=== PATIENT | female | born 1940 | race Caucasian/White ===

== ENCOUNTER → 2020-12-09 09:49 | Outpatient (CLI) | payer MEDICARE, SELFPAY ==
--- NOTE | ~2020-12-09 | CT_ITS ---
EXAMINATION: CT abdomen pelvis wo/w con DATE: 12/09/2020 10:55 INDICATION: Chronic constipation, abdominal distention TECHNIQUE: Computed tomography (CT) of the abdomen and pelvis was performed prior to and following e administration of 100 mL Omnipaque 350 intravenous contrast. The dose-length product (DLP) was 1400 .76 mGy-cm. Automated exposure control and iterative reconstruction technique were employed. COMPARISON: None FINDINGS: Minimal dependent atelectasis is present in the lung bases. The heart size is normal. The l iver, spleen, pancreas, and adrenal glands are normal. Stones are present in the nondistended gallbla dder. There are peripelvic cysts of the kidneys. No stones are identified in the kidneys, ureters, or bladder. There is no hydronephrosis or hydroureter. There is calcified atherosclerosis of the aorta and many of the other arteries. No pathologically enlarged abdominal or pelvic lymph nodes are identi fied. There is no free intraperitoneal gas or evidence of bowel obstruction. A large volume of coloni c stool is present, particularly at the hepatic flexure of the colon. There is moderate lumbar spond ylosis. IMPRESSION: 1. Constipation. Reviewed, dictated and finalized at location A. IMPRESSION: 1. Constipation.
== END ==
PROVIDERS: PCP Family Medicine; Visit Provider Physician Assistant
DX: R14.0 Abdominal distension (gaseous) (principal); K59.09 Other constipation
CPT/HCPCS: 74178; Q9967

== ENCOUNTER 2020-12-15 09:58 | Outpatient (CLI) | payer MEDICARE, SELFPAY ==
--- NOTE | ~2020-12-15 | MM_ITS ---
EXAMINATION: MM screening [facility] BI w jared HISTORY: Screening mammogram TECHNIQUE: Craniocaudal and mediolateral oblique 3-D tomosynthesis images were obtained and synthetic 2-D images were generated. CAD analysis was submitted and interpreted. COMPARISON: 09/13/2016, 09/08/2016, 05/24/2015 BREAST PARENCHYMAL COMPOSITION: The breasts are heterogeneously dense, which may obscure small masses . FINDINGS: RIGHT BREAST: An asymmetry is present in the far posterior third of the inner breast on the craniocau riki view. LEFT BREAST: There is no evidence of suspicious mass, calcification, or architectural distortion to s uggest malignancy. There has been no significant interval change. IMPRESSION: 1. Right breast asymmetry on the craniocaudal view. 2. Additional mammographic views and possible breast ultrasound are recommended. BI-RADS Category 0: Incomplete: Needs additional imaging evaluation. Reviewed, dictated and finalized at location A. IMPRESSION: 1. Right breast asymmetry on the craniocaudal view. 2. Additional mammographic views and possible breast ultrasound are recommended . BI-RADS Category 0: Incomplete: Needs additional imaging evaluation.
== END 2020-12-15 09:59 | disposition home or self-care (01) ==
LOC: ANHIMG 10:00
PROVIDERS: PCP Family Medicine; Visit Provider Physician Assistant
DX: Z12.31 Encounter for screening mammogram for malignant neoplasm of breast (principal); R92.8 Other abnormal and inconclusive findings on diagnostic imaging of breast
CPT/HCPCS: 77063; 77067

== ENCOUNTER 2021-01-13 12:18 | Outpatient (CLI) | payer MEDICARE, SELFPAY ==
--- NOTE | ~2021-01-13 | MMUS_ITS ---
EXAMINATION: MM diagnostic mammo unilat RT, US breast RT limited HISTORY: Right breast asymmetry reported in far posterior medial right breast on screening craniocaud al view of 12/15/2020 TECHNIQUE: Additional 3-D tomosynthesis images of the right breast were performed and synthetic 2-D i mages were generated. Rotated medial craniocaudal view of right breast. CAD analysis was submitted an d interpreted. High resolution upper inner and lower inner right breast ultrasound was performed. COMPARISON: 12/15/2020, , 05/24/2015 bilateral digital screening mammogram examinations FINDINGS: MAMMOGRAPHIC FINDINGS: No suspicious mass or architectural distortion is evident. ULTRASOUND: No suspicious mass or shadowing is detected in the upper inner or lower inner quadrant of the right b reast. IMPRESSION: 1. No mammographic evidence of malignancy 2. Routine mammographic screening is recommended. BI-RADS Category 1: Negative Reviewed, dictated and finalized at location A. IMPRESSION: 1. No mammographic evidence of malignancy 2. Routine mammographic screening is recommended. BI-RADS Category 1: Negative
== END 2021-01-13 12:19 | disposition home or self-care (01) ==
LOC: ANHIMG 12:20
PROVIDERS: PCP Family Medicine; Visit Provider Physician Assistant
DX: R92.8 Other abnormal and inconclusive findings on diagnostic imaging of breast (principal)
CPT/HCPCS: 76642; 77065

== ENCOUNTER 2022-05-08 14:24 | Outpatient (CLI) | payer MEDICARE, SELFPAY ==
--- NOTE | ~2022-05-08 | MM_ITS ---
EXAMINATION: MM screening [facility] BI w jared HISTORY: Screening mammogram TECHNIQUE: Craniocaudal and mediolateral oblique 3-D tomosynthesis images were obtained and synthetic 2-D images were generated. CAD analysis was submitted and interpreted. COMPARISON: 01/13/2021, 12/15/2020, 09/13/2016 BREAST PARENCHYMAL COMPOSITION: There are scattered areas of fibroglandular density. FINDINGS: There is no suspicious mass, calcification, or architectural distortion to suggest malignan cy in either breast. There has been no suspicious interval change. IMPRESSION: 1. No mammographic evidence of malignancy. 2. Recommend routine screening mammography in one year. BI-RADS Category 1: Negative Reviewed, dictated and finalized at location A.
--- NOTE | ~2022-05-08 | DEXA_ITS ---
Bone Density Report Name: OCTAVIA MARTINES Age: 82 Sex: Female Ethnicity: White Date of : 1940 Indication: osteopenia; monitoring treatment; parental hip fracture; height loss; prior fracture; postmenopausal Referring Provider: PORSCHE THOMPSON Study: Bone densitometry was performed. Exam Date: May 08, 2022 Accession number: [id number] Bone Density: Region BMD T-score Z-score Classification AP Spine(L1-L4) 1.000 -0.4 2.3 Normal Femoral Neck (Left) 0.613 -2.1 0.3 Osteopenia Total Hip (Left) 0.749 -1.6 0.6 Osteopenia Femoral Neck (Right) 0.648 -1.8 0.6 Osteopenia Total Hip (Right) 0.783 -1.3 0.9 Osteopenia Total Hip Mean 0.766 -1.5 0.8 Osteopenia World Health Organization criteria for BMD impression classify patients as: Normal (T-score at or above -1.0), Osteopenia (T-score between -1.0 and -2.5), or Osteoporosis (T-score at or below -2.5). 10-year Fracture Risk: FRAX not reported because: Treated for osteoporosis Previous Exams: Region Exam Age BMD T-score BMD Change BMD Change Date g/cm2 vs Baseline vs Previous AP Spine (L1-L4) 05/08/2022 82 1.000 -0.4 0.064 (6.8%)# 0.070 (7.5%)* 05/24/2015 75 0.931 -1.1 -0.005 (-0.6%) -0.005 (-0.6%) 04/21/2013 73 0.936 -1.0 Total Hip(Left) 05/08/2022 82 0.749 -1.6 0.030 (4.1%)# -0.014 (-1.8%) 05/24/2015 75 0.763 -1.5 0.044 (6.1%)# 0.044 (6.1%)# 04/21/2013 73 0.719 -1.8 Total Hip(Right) 05/08/2022 82 0.783 -1.3 0.044 (6.0%)# 0.042 (5.7%)* 05/24/2015 75 0.740 -1.7 0.002 (0.3%)# 0.002 (0.3%)# 04/21/2013 73 0.738 -1.7 *Denotes significance at 95% confidence level, LSC for AP Spine = 0.022 g/cm2, LSC for Total Hip = 0.027 g/cm2 # Denotes dissimilar scan types or analysis methods Clinical Information Provided by Patient: Has had a low trauma fracture Parent has had a hip fracture Is being treated for osteoporosis Has used the following medications: Fosamax (i.e. alendronate), Vitamin D, Calcium Patient maximum height was 64 Menopause Age: 45 No regular weight bearing exercise Onset of menses at age 13 Number of children 5 Impression: The patient has low bone mass, based on the Left Femoral Neck T-score. The patient has risk factors, including: parental hip fracture, previous fracture. No significant bone loss was observed. Discussion: PATIENT UNDER TREATMENT WITH NO SIGNIFICANT BMD LOSS SINCE LAST EXAM. In an untreated patient
== END 2022-05-08 14:25 | disposition home or self-care (01) ==
LOC: ANHIMG 14:25
PROVIDERS: PCP Family Medicine; Visit Provider Physician Assistant
DX: Z12.31 Encounter for screening mammogram for malignant neoplasm of breast (principal); Z78.0 Asymptomatic menopausal state; M85.852 Other specified disorders of bone density and structure, left thigh; M85.851 Other specified disorders of bone density and structure, right thigh
CPT/HCPCS: 77063; 77067; 77080

== ENCOUNTER 2023-05-30 15:13 | Outpatient (CLI) | payer MEDICARE, SELFPAY ==
[2023-05-30 20:36] LABS: Alanine Aminotransferase 31 U/L (6-35); Albumin Level 4.3 g/dL (3.5-5.1); Alkaline Phosphatase 106 U/L (38-126); Anion Gap 8 mmol/L (8-16); Aspartate Amino Transferase 36 U/L (14-36); Bilirubin,Total 0.5 mg/dL (0.2-1.3); Blood Urea Nitrogen 36 mg/dL (7-17); Calcium 9.6 mg/dL (8.4-10.2); Carbon Dioxide 28 mmol/L (22-30); Chloride 99 mmol/L (98-107); Estimated Glomerular Filt Rate 43; Glucose 109 mg/dL (65-110); Potassium 4.5 mmol/L (3.4-5.0); Sodium 135 mmol/L (137-145)
[2023-05-30 21:42] LABS: Hemoglobin A1C 6.5 % (<5.7)
== END 2023-05-30 15:14 | disposition home or self-care (01) ==
LOC: ANHGOSHLAB 15:15
PROVIDERS: PCP Family Medicine; Visit Provider Family Medicine
DX: E11.9 Type 2 diabetes mellitus without complications (principal); I10 Essential (primary) hypertension
CPT/HCPCS: 36415; 80053; 83036

== ENCOUNTER → 2023-09-04 14:40 | Outpatient (CLI) | payer MEDICARE, SELFPAY ==
--- NOTE | ~2023-09-04 | XR_ITS ---
EXAM: XR hip BI 2V w AP pelvis DATE: 09/04/2023 15:13 HISTORY: M25.559 - Pain in unspecified hip . COMPARISON: CT abdomen pelvis 12/09/2020. FINDINGS: Decreased mineralization. No fracture or dislocation. No lytic or blastic lesion. Severe l umbar degenerative disc disease. Moderate right and mild left hip degenerative change. Moderate ostei tis pubis. Amorphous calcification superior to the right greater trochanter. Spaces are maintained. N o erosion or periosteal change. Soft tissues within normal limits. IMPRESSION: Moderate right and mild left hip osteoarthritis. Calcific tendinitis at the right greater trochanter. Moderate osteitis pubis. Severe lower lumbar degenerative disc disease. Reviewed, dictated and finalized at location K. RISK ANALYST IMPRESSION: Moderate right and mild left hip osteoarthritis. Calcific tendiniti s at the right greater trochanter. Moderate osteitis pubis. Severe lower lumbar degenerative disc disease.
== END ==
PROVIDERS: PCP Family Medicine; Visit Provider Nurse Practitioner Family
DX: M16.0 Bilateral primary osteoarthritis of hip (principal); M65.251 Calcific tendinitis, right thigh; M86.8X5 Other osteomyelitis, thigh; M51.36 Other intervertebral disc degeneration, lumbar region
CPT/HCPCS: 73521

== ENCOUNTER 2023-09-06 09:54 | Emergency (ER) | payer MEDICARE, SELFPAY ==
--- NOTE | ~2023-09-06 | XR_ITS ---
XR chest 1V DATE: 09/06/2023 11:26 INDICATION: Chest pain, generalized weakness TECHNIQUE: AP chest COMPARISON: November 14, 2005 2 view chest FINDINGS: Cardiomegaly. Prominent aortic arch calcification. No hilar or mediastinal enlargement is e vident. Bilateral apical capping. No pulmonary infiltrate or consolidation, pleural effusion or pulmonary vascular congestion or pneumo thorax is evident. Osteopenia. IMPRESSION: Cardiomegaly, aortic atherosclerosis No active pulmonary disease Reviewed, dictated and finalized at location L. ODY OFFICER
--- NOTE | ~2023-09-06 | XR_ITS ---
EXAMINATION: XR shoulder RT min 2V DATE: 09/06/2023 11:26 INDICATION: Right shoulder pain. TECHNIQUE: 4 views of right shoulder were obtained. COMPARISON: None. FINDINGS: Bone alignment is normal. No fracture. There is mild osteoarthritis of glenohumeral joint a nd severe osteoarthritis of the acromioclavicular joint. There is mild scarring at right lung apex. IMPRESSION: 1. Polyarticular osteoarthritis. Reviewed, dictated and finalized at location A. P CLERK
--- NOTE | ~2023-09-06 | XR_ITS ---
EXAMINATION: XR shoulder LT min 2V DATE: 09/06/2023 11:26 INDICATION: Left shoulder pain. TECHNIQUE: 4 views of left shoulder were obtained. COMPARISON: None. FINDINGS: Bone alignment is normal. No fracture. There is mild osteoarthritis of glenohumeral joint a nd acromioclavicular joint. IMPRESSION: 1. Mild polyarticular osteoarthritis. Reviewed, dictated and finalized at location A. TENDER
[2023-09-06 10:07] VITALS: BP 150/69; PULSE 93; RESP 18; TEMP 36.8; O2SAT 100
--- NOTE | 2023-09-06 10:51 | ECG_ITS ---
Measurements Intervals [place] Rate: 98 P: 64 LA: 188 QRS: 5 QRSD: 126 T: 65 QT: 362 QTc: 464 Interpretive Statements SINUS RHYTHM LEFT BUNDLE BRANCH BLOCK [120+ ms QRS DURATION, 80+ ms Q/S IN V1/V2, 85+ ms R IN I/aVL/V5/V6] NO PREVIOUS ECG AVAILABLE FOR COMPARISON Electronically Signed On 09-06-2023 14:05:55 GUEST SERVICE AIDE by Chetna Wyatt M.D.
--- NOTE | 2023-09-06 10:59 | ED.EXTPRO ---
HPI - Extremity Problem General Chief complaint: Extremity Problem,Nontraumatic <Freda Mccoy PA-C - Last Filed: 09/06/23 14:57> Stated complaint: PAIN ALL OVER SINCE [place] <Freda Mccoy PA-C - Last Filed: 09/06/23 14:57> Time Seen by Provider: 09/06/23 10:12 <Freda Mccoy PA-C - Last Filed: 09/06/23 14:57> History of Present Illness HPI Narrative: 83-year-old female with a history of osteopenia, hypertension, hyperlipidemia reports for evaluation for bilateral shoulder pain, neck pain and bilateral hip pain since July 30, 2023. Patient states she is ?pain all over? that suddenly started around [place] and has been persistent since. She states her pain is significantly worse in the mornings and tends to improve with movement. She reports associated muscle weakness and new onset lower extremity edema. Denies prior history of CHF. States the pain in her shoulders, neck and hips are worse with movement, specifically when she was going up stairs or going from a sitting to standing position. She denies fevers, chest pain or shortness of breath, cough or congestion, rash. The patient was seen by her PCPs office 2 days ago. She had x-rays of her hips and pelvis done at that time which showed ?Moderate right and mild left hip osteoarthritis. Calcific tendinitis at the right greater trochanter. Moderate osteitis pubis. Severe lower lumbar degenerative disc disease. Per the PCP note, the patient was referred to physical therapy and was advised compression stockings for swelling. Denies vision changes, headaches, temporal pain, fever. <Freda Mccoy PA-C - Last Filed: 09/06/23 14:57> Related Data Home medications: Home Medications Medication Instructions Recorded Confirmed ascorbate calcium (vitamin C) 500 500 mg PO DAILY 11/29/22 05/30/23 mg tablet calcium carbonate 500 mg calcium 500 mg PO BID 11/29/22 05/30/23 (1,250 mg) chewable tablet (Calcium 500) cholecalciferol (vitamin D3) 50 50 mcg PO DAILY 11/29/22 05/30/23 mcg (2,000 unit) capsule multivitamin 1 tablet PO DAILY 11/29/22 05/30/23 omega-3 fatty acids 1,000 mg 1,000 mg PO DAILY 11/29/22 05/30/23 capsule <Freda Mccoy PA-C - Last Filed: 09/06/23 14:57> Allergies/Adverse reactions: Allergies Allergy/AdvReac Type Severity Reaction Status Date / Time doxycycline Allergy Unknown Skin Verified 09/04/23 14:13 Reaction Penicillins Allergy Unknown Skin Verified 09/04/23 14:13 Reaction Wasp Allergy Mild Unknown Uncoded 09/04/23 14:13 <Freda Mccoy PA-C - Last Filed: 09/06/23 14:57> Review of Systems Review of Systems: CONSTITUTIONAL: Denies fever, chills, or sweats. EYES: Denies visual changes, redness, or discharge. ENT: Denies rhinorrhea, congestion, sore throat, or otalgia. CARDIOVASCULAR: See HPI RESPIRATORY: Denies cough or dyspnea. GASTROINTESTINAL: Denies abdominal pain, nausea, vomiting, or diarrhea. GENITOURINARY: Denies dysuria or hematuria. SKIN: Denies rash or itching. MUSCULOSKELETAL: See HPI NEUROLOGIC: Denies headache, numbness, or weakness. PSYCHIATRIC: Denies anxiety or depression. <Freda Mccoy PA-C - Last Filed: 09/06/23 14:57> [facility] Past Medical History Medical History: Medical History CKD (chronic kidney disease) stage 3, GFR 30-59 ml/min Essential (primary) hypertension Osteopenia Prediabetes Pure hypercholesterolemia, unspecified <Freda Mccoy PA-C - Last Filed: 09/06/23 14:57> Surgical History Surgical History: Surgical History History of appendectomy (~1944) <Freda Mccoy PA-C - Last Filed: 09/06/23 14:57> Family History Family History: Family History Mother Hypertension Family history of rheumatoid arthritis Father Dece
[2023-09-06 11:06] VITALS: BP 145/73; PULSE 96; RESP 18; O2SAT 98
[2023-09-06] MEDS: MORPHINE SULFATE (*CRX) 2 MG/ML INJ IV PUSH (11:09)
[2023-09-06 11:10] LABS: Basophils Absolute Auto 0.1 K/mm3 (0.0-0.1); Basophils Percent Auto 0.5 % (0.2-1.2); Eosinophils Absolute Auto 0.2 K/mm3 (0-0.3); Eosinophils Percent Auto 1.6 % (0-4.4); Hematocrit 39.9 % (37.0-47.0); Hemoglobin 12.6 g/dL (12.0-15.0); Immature Granulocyte Absolute 0.04 K/mm3 (0.00-0.031); Immature Granulocyte Percent A 0.4 % (0-0.5); Lymphocytes Absolute Auto 1.81 K/mm3 (0.9-3.2); Mean Corpuscular HGB Conc 31.6 g/dl (32-36); Mean Corpuscular Hemoglobin 28.3 pg (26-34); Mean Corpuscular Volume 89.5 fl (80-100); Mean Platelet Volume 9.5 fl (7.4-10.4); Monocytes Percent Auto 10.2 % (2.6-8.5); Neutrophils Absolute Auto 6.5 K/mm3 (1.3-6.7); Neutrophils Percent Auto 68.3 % (45.5-73.1); Platelet Count Result 271 k/mm3 (150-375); Red Blood Count 4.46 M/mm3 (4.2-5.4); Red Cell Distribution Width 13.2 % (11.5-14.5); White Blood Count 9.6 K/mm3 (4.5-10.0)
[2023-09-06 11:23] LABS: Alanine Aminotransferase 23 U/L (6-35); Albumin Level 3.6 g/dL (3.5-5.1); Alkaline Phosphatase 121 U/L (38-126); Anion Gap 9 mmol/L (8-16); Aspartate Amino Transferase 23 U/L (14-36); Bilirubin,Total 0.4 mg/dL (0.2-1.3); Blood Urea Nitrogen 33 mg/dL (7-17); CRP 3.7 mg/dL (<1.0); Calcium 9.4 mg/dL (8.4-10.2); Carbon Dioxide 27 mmol/L (22-30); Chloride 104 mmol/L (98-107); Creatine Kinase 24 U/L (30-135); Estimated CRCL calculation 32 ml/min; Estimated Glomerular Filt Rate 47; Glucose 208 mg/dL (65-110); Potassium 4.3 mmol/L (3.4-5.0); Sodium 140 mmol/L (137-145)
[2023-09-06 11:29] LABS: NT Pro B Type Natriuretic Pept 360 pg/mL (19.9-100)
[2023-09-06 11:46] LABS: Erythrocyte Sedimentation Rate 69 mm/hr (0-20)
[2023-09-06 12:17] VITALS: BP 127/61; PULSE 90; RESP 17; O2SAT 97
[2023-09-06 12:24] LABS: Thyroid Stimulating Hormone Reflex 0.518 uIU/mL (0.465-4.68)
[2023-09-06 13:28] VITALS: BP 125/57; PULSE 91; RESP 18; O2SAT 96
[2023-09-06 13:45] LABS: Appearance Urine Cloudy (Clear); Bacteria Urine None Seen /hpf; Bilirubin Urine Negative (Negative); Blood Urine Negative (Negative); Color Urine Yellow (Yellow); Glucose Urine UA 3+ mg/dL (Negative); Ketones Urine Negative (Negative); Leukocyte Esterase Ur Negative LEU/UL (Negative); Nitrate Urine Negative (Negative); Non Pathogenic Casts 0-2; Protein Urine Negative (Negative); RBC Urine 0-2 /hpf (0-2); Specific Grav Ur 1.022 (1.001-1.035); Squamous Epithelial Cell Urine None seen /hpf (Few); Urobilinogen Urine 0.2 mg/dL (<2.0); pH Urine 7.5 (5.0-9.0)
[2023-09-06 13:48] LABS: Add Urine Microscopic? YES
[2023-09-06] MEDS: predniSONE 20 MG TABLET PO (14:58)
[2023-09-06 15:14] VITALS: BP 126/81; PULSE 88; RESP 18; O2SAT 100
== END 2023-09-06 15:15 | disposition home or self-care (01) ==
PROVIDERS: Emergency Provider Physician Assistant; PCP Family Medicine
DX: M35.3 Polymyalgia rheumatica (principal); R60.0 Localized edema; I12.9 Hypertensive chronic kidney disease with stage 1 through stage 4 chronic kidney disease, or unspecified chronic kidney disease; N18.30 Chronic kidney disease, stage 3 unspecified; E78.00 Pure hypercholesterolemia, unspecified; R73.03 Prediabetes; M85.80 Other specified disorders of bone density and structure, unspecified site; M19.012 Primary osteoarthritis, left shoulder; M19.011 Primary osteoarthritis, right shoulder; I44.7 Left bundle-branch block, unspecified
CPT/HCPCS: 36415; 71045; 73030; 80053; 81001; 82550; 83880; 84443; 85025; 85652; 86140; 87086; 93005; 96374; 99284; J2270; J7512

== ENCOUNTER 2023-09-10 15:26 | Outpatient (RCR) | payer MEDICARE, SELFPAY ==
--- NOTE | 2023-09-10 16:20 | OPREHPOC ---
Outpatient Therapy Plan of Care This is a Multidisciplinary Plan of Care that may contain components documented by all disciplines (PT, OT, and ST.) PT Problem 1 PT Problem #1 Knowledge Deficit PT Goal 1 Goal 1. Patient will perform independent HEP Target Visit 8 PT Problem 2 PT Problem #2 Pain PT Goal 1 Goal 1. Pain with ADL's no higher than 1/10 Target Visit 8 PT Problem 3 PT Problem #3 Impaired Strength PT Goal 1 Goal 1. Bilateral hip abduction and extension to 4+/5 to reduce pain with transfers Target Visit 8 PT Problem 4 PT Problem #4 Impaired Functional ADLs PT Goal 1 Goal 1. Patient will descend stairs reciprocally without turning body to side Target Visit 8
--- NOTE | 2023-09-10 16:20 | PTOPEVAL1 ---
Assessment and note entered by Sarah Rose DPT Evaluation Information Assessment Status Evaluation Subjective Information Pt reports she bilateral anterior hip pain that started in her right side. Denies n/t in her legs. Progressively worsened over the last few weeks. Was given steroids which has helped some. Highest pain 6/10 and lowest 0/10. Pain seems to be increased with getting in/out of bed, car transfers navigating stairs, has required some assistance for dressing. When pain is at the worst she was not doing her normal cooking or cleaning. Pt lives with spouse and family. Two stairs to enter the house and stairs to the basement. Pt does drive. Returns to MD 09/17/23. Patient goal: improve strength. Reported Pain Level Pain Score 1: Self Report Assessment PT Clinical Summary The patient is presenting to skilled therapy with bilateral hip pain. She presents with significantly decreased LE strength and impairments navigating stairs which are contributing to her pain and difficulty with tasks including car and bed transfers. She will highly benefit from therapy to address these impairments in order to return to prior level of function. Plan of Care Interventions Electrical Stimulation,Gait Training,Hot Pack/Cold Pack,Manual Therapy,Neuro Re-education,Patient/ Caregiver Education,Therapeutic Activities, Therapeutic Exercise PT Services Indicated Yes Treatment Frequency and 2 times a week for 8 visits Duration These treatments will address the objective and functional deficits as defined above. The patient will be advanced safely and appropriately in order for the patient to progress towards his/her prior level of function. Additional exercises will be introduced and as well as a comprehensive home exercise program upon discharge, if needed, ?to ensure carryover of functional gains achieved in the clinic. This treatment plan has been reviewed and agreement upon by the patient.
--- NOTE | 2023-09-24 16:33 | PCPTNOTE ---
Patient called to cancel, unable to make it today.
--- NOTE | 2023-09-26 10:16 | PCPTNOTE ---
Patient and her daughter have cancelled all appointments for the time being due to a lot going on right now .
--- NOTE | 2023-11-26 15:10 | PTOPDC ---
Assessment and note entered by ASHLEY UmanzorT Evaluation Information Assessment Status Discharge - Pt Not Present Subjective Information - Assessment PT Clinical Summary Patient and her daughter previously canceled all appointments due to a lot going on right now and have not called back to schedule further. Patient to be discharged this date. Plan of Care PT Services Indicated No
== END 2023-11-27 08:18 | disposition home or self-care (01) ==
LOC: ANHGOSHPT 15:26
PROVIDERS: PCP Family Medicine; Visit Provider Nurse Practitioner Family
DX: M25.551 Pain in right hip (principal); M25.552 Pain in left hip
CPT/HCPCS: 97110; 97140; 97161

== ENCOUNTER 2023-09-21 14:06 | Emergency (ER) | payer MEDICARE, SELFPAY ==
[2023-09-21] VITALS (17 sets, daily range): BP systolic 92–161; BP diastolic 52–92; PULSE 62–96; RESP 10–21; TEMP 36.4; O2SAT 95–98
--- NOTE | ~2023-09-21 | CT_ITS ---
EXAMINATION: CT cervical spine wo con DATE: 09/21/2023 18:36 INDICATION: fall TECHNIQUE: Computed tomography (CT) of the cervical spine was performed without intravenous contrast. Automated exposure control and iterative reconstruction technique were employed. The dose-length pro duct was 186.20 mGy-cm. COMPARISON: None. FINDINGS: Vertebral Body Alignment: Lateral flexion of the cervical spine. Multiple trace listheses in the cerv ical and upper thoracic spine, likely on a degenerative basis. Craniocervical and atlantoaxial alignment: Mild degenerative change. Alignment intact. Osseous structures/fracture: No evidence of a lytic or blastic process in the visualized spine. No e vidence of acute fracture. Cervical soft tissues: The paraspinal soft tissues planes are maintained. Biapical pleural scarring. 16 mm right thyroid nodule. Degenerative changes: Multilevel severe degenerative disc disease and facet arthropathy. Severe right neural foraminal narrowing at C3-4. Moderate central canal narrowing at C3-4. IMPRESSION: No acute fracture or traumatic malalignment in the cervical spine. 16 mm right thyroid nodule, consider outpatient thyroid ultrasound for further characterization. Reviewed, dictated and finalized at location K. PROJECT MANAGER
--- NOTE | ~2023-09-21 | CT_ITS ---
EXAMINATION: CT brain wo con DATE: 09/21/2023 18:34 INDICATION: fall . TECHNIQUE: Computed tomography (CT) of the head was performed intravenous contrast. The mA was adjust ed according to patient size. Iterative reconstruction technique was employed. The dose-length produc t was 605.33 mGy-cm. COMPARISON: None. FINDINGS: No acute intracranial hemorrhage or extra-axial fluid collection. No hydrocephalus, mass, or herniation. No acute ischemic infarct. Unremarkable dural venous sinus attenuation. No acute osseous abnormality. The aerated spaces are clear. Mild atrophy and chronic white matter change. Atherosclerotic intracranial calcification. Old posteri or left basal ganglia lacunar infarct. IMPRESSION: No acute intracranial process. Reviewed, dictated and finalized at location K. N WINDING OPERATOR
--- NOTE | ~2023-09-21 | XR_ITS ---
XR chest 1V DATE: 09/21/2023 18:40 INDICATION: Syncope. Fall. TECHNIQUE: PA view COMPARISON: 09/06/2023 chest FINDINGS: Cardiomegaly. Prominent aortic arch calcification. No hilar or mediastinal enlargement. Mild bilateral apical capping. No pulmonary infiltrate or consolidation, pulmonary vascular congestio n or pleural effusion or pneumothorax. IMPRESSION: No active disease or significant change since 09/06/2023 Reviewed, dictated and finalized at location A. ICAL RESEARCH ADMINISTRATOR
--- NOTE | ~2023-09-21 | XR_ITS ---
EXAMINATION: XR hip RT min 2V DATE: 09/21/2023 17:31 INDICATION: Fall with right hip pain TECHNIQUE: Anteroposterior and frog-leg lateral views of the right hip were obtained. COMPARISON: None. FINDINGS: Bone alignment is normal. No fracture or suspected avascular necrosis. There is mild osteoarthritis a t the right hip and moderate osteoarthritis at the right sacroiliac joint. Osteitis pubis. Chronic he terotopic versus enthesopathic ossification at the tip of the greater trochanter. IMPRESSION: 1. 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 No acute osseous abnormality. Reviewed, dictated and finalized at location A. ORATE STATISTICAL FINANCIAL ANALYST IMPRESSION: 1. 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 No acute osseou s abnormality.
--- NOTE | ~2023-09-21 | XR_ITS ---
EXAM: XR wrist RT min 3V DATE: 09/21/2023 17:31 HISTORY: fall . COMPARISON: None available. FINDINGS: Decreased mineralization. No fracture. Scapholunate widening to 3 mm. No lytic or blastic lesion. Severe degenerative change at the trapeziometacarpal joint and triscaphe joint. No erosion or periosteal change. Soft tissues within normal limits. IMPRESSION: No acute fracture in the right wrist. Scapholunate widening may reflect presence of acute or chronic scapholunate ligament injury. Reviewed, dictated and finalized at location K. CTOR OF MARKETING COMMUNICATIONS IMPRESSION: No acute fracture in the right wrist. Scapholunate widening may ref lect presence of acute or chronic scapholunate ligament injury.
--- NOTE | 2023-09-21 17:56 | ED.SYNCOPE ---
HPI - Syncope General Chief Complaint: Syncope <Freda Mccoy PA-C - Last Filed: 09/21/23 18:06> Stated Complaint: syncope/fall/wrist injury <Freda Mccoy PA-C - Last Filed: 09/21/23 18:06> Time Seen by Provider: 09/21/23 19:23 <Freda Mccoy PA-C - Last Filed: 09/21/23 18:06> Focused HPI: 83 y/o F reports for evaluation after a syncopal episode and fall that occurred around 0700 this morning. P states she had gotten out of the shower and went to get a coat out of the closet, turned around to her daughter and said I feel dizzy , then fell. State she thinks she blacked out for a second, is not sure if she hit her head. States she landed on her R side. Complaining of R hand pain and R hip pain. Denies neck pain, chest pain, shortness of breath, abdominal pain, n/v/d, melena, hematochezia, cough, congestion, fever, urinary complaints, headache. Denies vision changes or focal numbness or weakness. Not on anticoagulation. States she has not felt dizzy since. GENERAL: Well-appearing, well-nourished, and in no acute distress. HEAD: Normocephalic, atraumatic. CHEST: Clear to auscultation. ?No respiratory distress. HEART: Regular rate and rhythm.? MSK: Ecchymosis and tenderness to the R 1st and 2nd metacarpals with tenderness. Mild snuffbox tenderness. Cap refill <2. No tenderness to right hip. NEURO: ?Alert and oriented x3. CN 2-12 intact. Strength 5/5 throughout. Sensation intact. Patient screened in triage and initial orders placed.? ?Additional care and disposition to be based upon?diagnostic testing and treatment. <Freda Mccoy PA-C - Last Filed: 09/21/23 18:06> Related Data Home Medications: Home Medications Medication Instructions Recorded Confirmed ascorbate calcium (vitamin C) 500 500 mg PO DAILY 11/29/22 09/17/23 mg tablet calcium carbonate 500 mg calcium 500 mg PO BID 11/29/22 09/17/23 (1,250 mg) chewable tablet (Calcium 500) cholecalciferol (vitamin D3) 50 50 mcg PO DAILY 11/29/22 09/17/23 mcg (2,000 unit) capsule multivitamin 1 tablet PO DAILY 11/29/22 09/17/23 omega-3 fatty acids 1,000 mg 1,000 mg PO DAILY 11/29/22 09/17/23 capsule <Freda Mccoy PA-C - Last Filed: 09/21/23 18:06> Allergies/Adverse Reactions: Allergies Allergy/AdvReac Type Severity Reaction Status Date / Time doxycycline Allergy Unknown Skin Verified 09/17/23 09:43 Reaction Penicillins Allergy Unknown Skin Verified 09/17/23 09:43 Reaction Wasp Allergy Mild Unknown Uncoded 09/17/23 09:43 <Freda Mccoy PA-C - Last Filed: 09/21/23 18:06> [facility] Past Medical History Medical History: Medical History CKD (chronic kidney disease) stage 3, GFR 30-59 ml/min Essential (primary) hypertension Osteopenia Polymyalgia rheumatica Prediabetes Pure hypercholesterolemia, unspecified Type 2 diabetes mellitus without complications <Freda Mccoy PA-C - Last Filed: 09/21/23 18:06> Surgical History Surgical History: Surgical History History of appendectomy (~1944) <Freda Mccoy PA-C - Last Filed: 09/21/23 18:06> Family History Family History: Family History Mother Hypertension Family history of rheumatoid arthritis Father Malignant neoplasm of prostate Other Family history of elevated blood lipids Family history of multiple sclerosis <Freda Mccoy PA-C - Last Filed: 09/21/23 18:06> Social History Social History: Social History Smoking status: Never smoker Alcohol intake: never Substance use: never Substance use type: does not use Lack of Transportation: No Lack of Food: Never True Current Housing: I Have Housing Concerned About Future Housing: No Difficulty Paying Gas/El
--- NOTE | 2023-09-21 17:57 | ECG_ITS ---
Measurements Intervals [place] Rate: 72 P: 55 [place]: 163 QRS: -7 QRSD: 125 T: 81 QT: 413 QTc: 454 Interpretive Statements SINUS RHYTHM POSSIBLE LEFT ATRIAL ENLARGEMENT [-0.1mV P WAVE IN V1/V2] LEFT BUNDLE BRANCH BLOCK [120+ ms QRS DURATION, 80+ ms Q/S IN V1/V2, 85+ ms R IN I/aVL/V5/V6] ABNORMAL ECG COMPARED TO ECG 09/06/2023 11:02:12 NO SIGNIFICANT CHANGES Electronically Signed On 09-22-2023 8:21:01 [employer] by Melquiades Fernandez M.D.
[2023-09-21 20:03] LABS: Basophils Percent Auto 0.1 % (0.2-1.2); Eosinophils Percent Auto 0.1 % (0-4.4); Hemoglobin 14.4 g/dL (12.0-15.0); Immature Granulocyte Absolute 0.13 K/mm3 (0.00-0.031); Immature Granulocyte Percent A 0.9 % (0-0.5); Lymphocytes Absolute Auto 0.79 K/mm3 (0.9-3.2); Lymphocytes Percent Auto 5.2 % (18.3-44.2); Mean Corpuscular HGB Conc 31.3 g/dl (32-36); Mean Corpuscular Volume 89.3 fl (80-100); Mean Platelet Volume 10.5 fl (7.4-10.4); Monocytes Absolute Auto 0.3 K/mm3 (0.1-0.6); Monocytes Percent Auto 1.8 % (2.6-8.5); Neutrophils Absolute Auto 13.9 K/mm3 (1.3-6.7); Neutrophils Percent Auto 91.9 % (45.5-73.1); Platelet Count Result 222 k/mm3 (150-375); Red Blood Count 5.15 M/mm3 (4.2-5.4); Red Cell Distribution Width 14.5 % (11.5-14.5); White Blood Count 15.1 K/mm3 (4.5-10.0)
[2023-09-21 20:13] LABS: Alanine Aminotransferase 34 U/L (6-35); Albumin Level 4.2 g/dL (3.5-5.1); Alkaline Phosphatase 119 U/L (38-126); Anion Gap 9 mmol/L (8-16); Aspartate Amino Transferase 31 U/L (14-36); Bilirubin,Total 0.5 mg/dL (0.2-1.3); Blood Urea Nitrogen 66 mg/dL (7-17); Calcium 9.8 mg/dL (8.4-10.2); Carbon Dioxide 22 mmol/L (22-30); Chloride 101 mmol/L (98-107); Estimated CRCL calculation 29 ml/min; Estimated Glomerular Filt Rate 43; Glucose 202 mg/dL (65-110); Magnesium 2.3 mg/dL (1.6-2.3); Potassium 5.3 mmol/L (3.4-5.0); Sodium 132 mmol/L (137-145)
[2023-09-21 20:24] LABS: NT Pro B Type Natriuretic Pept 233 pg/mL (19.9-100); Troponin I < 0.012 ng/mL (0.000-0.034)
--- NOTE | 2023-09-21 22:11 | PC.NURSE ---
Took pt to bathroom and pt missed the hat given to urinate in. RN notified and Chey alerted the Dr
[2023-09-21] MEDS: SODIUM CHLORIDE 0.9% IV 2,000 ML 999 ML IV CONT (22:24)
--- NOTE | 2023-09-21 22:30 | ECG_ITS ---
Measurements Intervals [place] Rate: 72 P: 49 [place]: 168 QRS: -11 QRSD: 123 T: 108 QT: 408 QTc: 447 Interpretive Statements SINUS RHYTHM POSSIBLE LEFT ATRIAL ENLARGEMENT [-0.1mV P WAVE IN V1/V2] LEFT BUNDLE BRANCH BLOCK [120+ ms QRS DURATION, 80+ ms Q/S IN V1/V2, 85+ ms R IN I/aVL/V5/V6] ABNORMAL ECG COMPARED TO ECG 09/21/2023 20:37:29 NO SIGNIFICANT CHANGES Electronically Signed On 09-22-2023 8:24:36 CLEAN UP HELPER [employer]ANQUET by Melquiades Fernandez M.D.
[2023-09-21 22:41] LABS: Potassium 4.8 mmol/L (3.4-5.0)
[2023-09-21 22:55] LABS: Troponin I < 0.012 ng/mL (0.000-0.034)
[2023-09-22 00:10] LABS: Appearance Urine Clear (Clear); Bilirubin Urine Negative (Negative); Blood Urine Negative (Negative); Color Urine Yellow (Yellow); Glucose Urine UA 3+ mg/dL (Negative); Ketones Urine 1+ mg/dL (Negative); Leukocyte Esterase Ur Negative LEU/UL (Negative); Nitrate Urine Negative (Negative); Protein Urine Negative (Negative); Specific Grav Ur 1.023 (1.001-1.035); Urobilinogen Urine 0.2 mg/dL (<2.0)
[2023-09-22 00:20] LABS: Add Urine Microscopic? NO
[2023-09-22 00:53] VITALS: BP 139/61; PULSE 65; RESP 16; O2SAT 98
[2023-09-22 01:01] VITALS: BP 144/61; PULSE 59; RESP 14; O2SAT 97
[2023-09-22 01:16] VITALS: BP 144/58; PULSE 63; RESP 17; O2SAT 98
[2023-09-22 01:31] VITALS: BP 140/60; PULSE 67; RESP 13
[2023-09-22 01:46] VITALS: BP 150/60; PULSE 65; RESP 14
[2023-09-22 02:01] VITALS: BP 148/59; PULSE 71; RESP 14
--- NOTE | 2023-09-26 09:30 | PC.NURSE ---
LATE ENTRY This note is being entered to document information to the patient's record. The following information was omitted on [09/21/23], by [ Lawson Berry MD]. VORB for a thumb spica to be applied to R wrist. The following information was omitted on 09/21/23 by Chey Hill RN, R wrist thumb spica splint application applied.
== END 2023-09-22 02:25 | disposition home or self-care (01) ==
PROVIDERS: Physician Assistant; Emergency Provider Emergency Medicine; PCP Family Medicine
DX: S63.391A Traumatic rupture of other ligament of right wrist, initial encounter (principal); E86.0 Dehydration; R55 Syncope and collapse; E11.22 Type 2 diabetes mellitus with diabetic chronic kidney disease; I12.9 Hypertensive chronic kidney disease with stage 1 through stage 4 chronic kidney disease, or unspecified chronic kidney disease; N18.30 Chronic kidney disease, stage 3 unspecified; E78.00 Pure hypercholesterolemia, unspecified; M35.3 Polymyalgia rheumatica; Z79.84 Long term (current) use of oral hypoglycemic drugs; I44.7 Left bundle-branch block, unspecified; R94.31 Abnormal electrocardiogram [ECG] [EKG]; M46.1 Sacroiliitis, not elsewhere classified; M16.11 Unilateral primary osteoarthritis, right hip; E04.1 Nontoxic single thyroid nodule; W18.39XA Other fall on same level, initial encounter
CPT/HCPCS: 29125; 36415; 70450; 71045; 72125; 73110; 73502; 80053; 81003; 83735; 83880; 84132; 84484; 85025; 93005; 96360; 96361; 99284; J7030

== ENCOUNTER 2023-09-30 00:41 | Inpatient (IN) | payer MEDICARE, SELFPAY ==
[2023-09-30] VITALS (18 sets, daily range): BP systolic 87–157; BP diastolic 44–85; PULSE 69–117; RESP 14–21; TEMP 36.5–37.1; O2SAT 92–99; BMI 28.5
--- NOTE | ~2023-09-30 | XR_ITS ---
XR chest 1V portable 09/30/2023 02:05 Indication: Nausea and vomiting Procedure: AP portable chest Comparison: 09/21/2023 Findings: Heart size normal. No focal air space disease, pulmonary edema, pleural effusion or suspect ed pneumothorax. Impression: 1: No acute cardiopulmonary disease. Reviewed, dictated and finalized at location A. RY FINISHER Impression: 1: No acute cardiopulmonary disease.
--- NOTE | ~2023-09-30 | CT_ITS ---
EXAMINATION: CT abdomen pelvis w con DATE: 09/30/2023 02:44 INDICATION: Lower abdominal pain TECHNIQUE: Computed tomography (CT) of the abdomen and pelvis was performed with 100 cc Omnipaque 350 intravenous contrast. The dose-length product was 621.63 mGy-cm. Automated exposure control and iter ative reconstruction technique were employed. COMPARISON: CT dated 12/09/2020 FINDINGS: Lung bases are unremarkable. Heart size normal. No significant pleural or pericardial effus ion. There is diffuse colon wall thickening with loss of haustral pattern, consistent with colitis, m ost likely infectious or inflammatory. Fatty infiltration of the liver. There are gallstones. The spl een, adrenal glands are unremarkable. There are renal cysts. No significant hydronephrosis. There is a fat-containing left inguinal hernia. No abnormal pelvic masses or fluid collections. No free air or free fluid. There is diffuse atherosclerosis without aneurysm. No lymphadenopathy. IMPRESSION: 1. Diffuse thickening of the colon wall, consistent with colitis, most likely infectious/inflammatory . 2: Gallstones. Reviewed, dictated and finalized at location A. CTOR LIFE INSURANCE IMPRESSION: 1. Diffuse thickening of the colon wall, consistent with colitis, most likely i nfectious/inflammatory. 2: Gallstones.
--- NOTE | 2023-09-30 01:04 | ECG_ITS ---
Measurements Intervals [place] Rate: 77 P: 126 HI: 171 QRS: 196 QRSD: 126 T: 91 QT: 392 QTc: 444 Interpretive Statements SINUS RHYTHM BASELINE ARTIFACT ARM LEADS REVERSED [INVERTED P AND QRS IN I] LEFT BUNDLE-BRANCH BLOCK ABNORMAL ECG COMPARED TO ECG 09/21/2023 22:17:50 NO SIGNIFICANT CHANGES Electronically Signed On 09-30-2023 18:19:04 PREPPER by Loyd Carr M.D.
[2023-09-30 01:25] LABS: Basophils Percent Auto 0.2 % (0.2-1.2); Eosinophils Absolute Auto 0.1 K/mm3 (0-0.3); Eosinophils Percent Auto 0.4 % (0-4.4); Hematocrit 44.8 % (37.0-47.0); Hemoglobin 14.2 g/dL (12.0-15.0); Immature Granulocyte Percent A 0.8 % (0-0.5); Lymphocytes Absolute Auto 0.88 K/mm3 (0.9-3.2); Lymphocytes Percent Auto 7.3 % (18.3-44.2); Mean Corpuscular HGB Conc 31.7 g/dl (32-36); Mean Corpuscular Hemoglobin 28.2 pg (26-34); Mean Corpuscular Volume 89.1 fl (80-100); Mean Platelet Volume 10.4 fl (7.4-10.4); Monocytes Absolute Auto 0.6 K/mm3 (0.1-0.6); Monocytes Percent Auto 4.9 % (2.6-8.5); Neutrophils Absolute Auto 10.4 K/mm3 (1.3-6.7); Neutrophils Percent Auto 86.4 % (45.5-73.1); Platelet Count Result 182 k/mm3 (150-375); Red Blood Count 5.03 M/mm3 (4.2-5.4); Red Cell Distribution Width 15.2 % (11.5-14.5)
--- NOTE | 2023-09-30 01:54 | ED.GENADULT ---
HPI - General Adult General Chief complaint: Abdominal Pain Stated complaint: ABD PAIN, N/V, SYNCOPAL EPISODE TODAY History of Present Illness HPI narrative: This is an 83-year-old female presenting ED with chief complaint of abdominal pain. Abdominal pain started earlier today it is a crampy pain in her lower abdomen. Associated with sensation have wanting to have a bowel movement. The patient also has nausea and vomiting. She is unsure if she is still passing gas. patient has had a appendectomy when younger but no other abdominal surgeries. No history of small-bowel obstruction. No recent antibiotics. She was seen in our ED last week for a syncopal event was diagnosed with dehydration. Related Data Home Medications Medication Instructions Recorded Confirmed ascorbate calcium (vitamin C) 500 500 mg PO DAILY 11/29/22 09/25/23 mg tablet calcium carbonate 500 mg calcium 500 mg PO BID 11/29/22 09/25/23 (1,250 mg) chewable tablet (Calcium 500) cholecalciferol (vitamin D3) 50 50 mcg PO DAILY 11/29/22 09/25/23 mcg (2,000 unit) capsule multivitamin 1 tablet PO DAILY 11/29/22 09/25/23 omega-3 fatty acids 1,000 mg 1,000 mg PO DAILY 11/29/22 09/25/23 capsule Allergies Allergy/AdvReac Type Severity Reaction Status Date / Time doxycycline Allergy Unknown Skin Verified 09/25/23 09:52 Reaction Penicillins Allergy Unknown Skin Verified 09/25/23 09:52 Reaction Wasp Allergy Mild Unknown Uncoded 09/25/23 09:52 [facility] Past Medical History Medical History CKD (chronic kidney disease) stage 3, GFR 30-59 ml/min Essential (primary) hypertension Osteopenia Polymyalgia rheumatica Pure hypercholesterolemia, unspecified Type 2 diabetes mellitus without complications Surgical History Surgical History History of appendectomy (~1944) Family History Family History Mother Hypertension Family history of rheumatoid arthritis Father Malignant neoplasm of prostate Other Family history of elevated blood lipids Family history of multiple sclerosis Social History Social History Smoking status: Never smoker Alcohol intake: never Substance use: never Substance use type: does not use Lack of Transportation: No Lack of Food: Never True Current Housing: I Have Housing Concerned About Future Housing: No Difficulty Paying Gas/Electric Bills: No Difficulty Paying for Meds: No Currently Unemployed: No Education: Bachelor's Degree Difficulty w/ Childcare or Family Care: No Living arrangements: with family Additional living arrangements comments: Occupation/Education: retired Gender identity (if verbalized by the patient): Male Sexual Orientation (if Verbalized by the Patient): Straight or Heterosexual Spiritual care concerns: No Exam Narrative: APPEARANCE: patient appears uncomfortable Head: atraumatic. EYES: EOMI, NOSE: Atraumatic NECK: Trachea midline RESPIRATORY: No increased rate of breathing clear to auscultation CARDIOVASCULAR: tachycardic ABDOMINAL: soft but mild tenderness diffusely MUSCULOSKELETAl: No obvious deformities NEURO: Alert. Moving 4/4 extremities SKIN:: Warm, dry. Normal color PSYCHIATRIC: Normal affect Course Vital Signs Vital signs: Vital Signs Temperature 98.4 F 09/30/23 00:52 Pulse Rate 71 09/30/23 00:52 Respiratory Rate 15 09/30/23 00:52 Blood Pressure 157/77 H 09/30/23 00:52 Pulse Oximetry 99 09/30/23 00:52 Oxygen Delivery Room Air 09/30/23 00:52 Temperature 98.4 F 09/30/23 00:52 Pulse Rate 86 09/30/23 05:15 Respiratory Rate 15 09/30/23 05:15 Blood Pressure 133/63 09/30/23 05:15 Pulse Oximetry 95 09/30/23 05:15 Oxygen Delivery Room Air 09/30/23 00:52
--- NOTE | 2023-09-30 02:00 | PC.NURSE ---
Pt had large mostly liquid BM, approx 1 liter of foul smelling stool. Dr Olivo notified and sample sent to lab. Pt states feels much better after BM. Declined pain meds.
[2023-09-30 02:04] LABS: Alanine Aminotransferase 32 U/L (6-35); Albumin Level 3.7 g/dL (3.5-5.1); Alkaline Phosphatase 98 U/L (38-126); Anion Gap 11 mmol/L (8-16); Aspartate Amino Transferase 25 U/L (14-36); Bilirubin,Total 0.7 mg/dL (0.2-1.3); Blood Urea Nitrogen 57 mg/dL (7-17); Calcium 9.7 mg/dL (8.4-10.2); Carbon Dioxide 14 mmol/L (22-30); Chloride 108 mmol/L (98-107); Estimated CRCL calculation 30 ml/min; Estimated Glomerular Filt Rate 43; Glucose 174 mg/dL (65-110); Lipase 100 U/L (23-300); Potassium 5.2 mmol/L (3.4-5.0); Sodium 133 mmol/L (137-145)
[2023-09-30] MEDS: SODIUM CHLORIDE 0.9% IV 2,000 ML 999 ML IV CONT (02:05)
[2023-09-30] MEDS: ONDANSETRON INJ 4 MG/2 ML VIAL IV PUSH (02:05)
[2023-09-30 02:35] LABS: Appearance Urine Cloudy (Clear); Bacteria Urine None Seen /hpf; Bilirubin Urine Negative (Negative); Blood Urine Negative (Negative); Color Urine Yellow (Yellow); Glucose Urine UA 3+ mg/dL (Negative); Ketones Urine Negative (Negative); Leukocyte Esterase Ur Trace LEU/UL (Negative); Nitrate Urine Negative (Negative); Non Pathogenic Casts 0-2; Protein Urine Negative (Negative); Specific Grav Ur 1.019 (1.001-1.035); Squamous Epithelial Cell Urine None seen /hpf (Few)
[2023-09-30 02:39] LABS: Add Urine Microscopic? YES
[2023-09-30 03:06] LABS: Influenza A QL RT-PCR Negative (Negative); Influenza B QL RT-PCR Negative (Negative); RSV RNA, RT-PCR Negative (Negative); SARS-CoV-2 RNA PCR Negative (Negative)
[2023-09-30 03:15] LABS: Lactic Acid Reflex 1.6 mmol/L (0.7-2.0)
--- NOTE | 2023-09-30 04:30 | PC.NURSE ---
Pt noted to have large bladder per ERP on CT. Pt up to [facility] for another BM and urine. Pt then bladder scanned again and has >571 in bladder. Gonzalez ordered and placed. Pt tolerated well.
[2023-09-30 05:34] LABS: Toxigenic C. Diff NEGATIVE (NEGATIVE)
--- NOTE | 2023-09-30 07:30 | PC.NURSE ---
Bedside report to VARUN Shah
[2023-09-30] MEDS: PANTOPRAZOLE SODIUM IV 40 MG VIAL IV PUSH (08:36)
[2023-09-30] MEDS: LACTATED RINGERS 1,000 ML 125 ML IV CONT (08:36)
--- NOTE | 2023-09-30 13:25 | PM.IMHP ---
H&P: HPI History of Present Illness Date/Time: 09/30/23 13:25 Chief Complaint: Patient came to the ER with complaints of lower abdominal associated with nausea and vomiting Narrative: 83 years old pleasant white female with chronic medical issues has recently been started on insulin for her diabetes mellitus. She has had episodes of the falls recently resulting in right wrist fracture. This is her 3rd ER visit in the last 4 weeks. She is complaining of sudden onset of lower abdominal pain yesterday with nausea and vomiting and had a near-syncopal episode at home. Patient evaluated in the ED and workup was done which showed findings consistent with dehydration and UTI. She also had colitis diagnosed on CT scan of the abdomen and pelvis. She has been started on IV antibiotics and being admitted for medical management and further workup. Review of Systems Review of Systems: 14 systems were reviewed with pertinent positives and negatives per HPI. Except as documented in the HPI/progress notes, all other systems were reviewed and are negative. All systems reviewed & are unremarkable except as noted in HPI and below PMFSH Past Medical History Medical History (Updated 09/30/23 @ 13:36 by Greg Thomas MD) CKD (chronic kidney disease) stage 3, GFR 30-59 ml/min Colitis Essential (primary) hypertension Osteopenia Polymyalgia rheumatica Pure hypercholesterolemia, unspecified Type 2 diabetes mellitus without complications Surgical History Surgical History History of appendectomy (~1944) Family History Family History Mother Hypertension Family history of rheumatoid arthritis Father Malignant neoplasm of prostate Other Family history of elevated blood lipids Family history of multiple sclerosis Social History Social History Smoking status: Never smoker Alcohol intake: never Substance use: never Substance use type: does not use Do You Feel Safe in your Home?: Yes Lack of Transportation: No Lack of Food: Never True Current Housing: I Have Housing Concerned About Future Housing: No Difficulty Paying Gas/Electric Bills: No Difficulty Paying for Meds: No Currently Unemployed: No Education: Bachelor's Degree Difficulty w/ Childcare or Family Care: No Living arrangements: with family Additional living arrangements comments: Occupation/Education: retired Gender identity (if verbalized by the patient): Male Sexual Orientation (if Verbalized by the Patient): Straight or Heterosexual 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[employer]) Meds Home Medications and Allergies Home Medications Medication Instructions Recorded Confirmed Type ascorbate calcium (vitamin C) 500 500 mg PO DAILY 11/29/22 09/30/23 History mg tablet calcium carbonate 500 mg calcium 500 mg PO BID 11/29/22 09/30/23 History (1,250 mg) chewable tablet (Calcium 500) cholecalciferol (vitamin D3) 50 50 mcg PO DAILY 11/29/22 09/30/23 History mcg (2,000 unit) capsule multivitamin 1 tablet PO DAILY 11/29/22 09/30/23 History omega-3 fatty acids 1,000 mg 1,000 mg PO DAILY 11/29/22 09/30/23 History capsule amlodipine 5 mg tablet (Norvasc) 5 mg PO DAILY #90 tabs 05/30/23 09/30/23 Rx atorvastatin 40 mg tablet 40 mg PO QHS #90 tabs 06/29/23 09/30/23 Rx lisinopril 20 mg tablet 20 mg PO DAILY #90 tabs 08/08/23 09/30/23 Rx empagliflozin 10 mg tablet 10 mg PO QAM #90 tabs 08/30/23 09/30/23 Rx (Jardiance) blood sugar diagnostic (Blood #100 ea 09/17/23 09/30/23 Rx Glucose Test strips) blood-glucose meter (Blood Glucose #1 ea 09/17/23 09/30/23 Rx Monitoring kit) lancets 28 gauge #100 ea 09/17/23 09/30/23 Rx blood-glucose sensor (Dexcom G7 #6 ea 09/25/23 09/30/23 Rx Sensor device) prednisone 10 mg tablet 10 m
[2023-09-30 14:17] LABS: Hemoglobin A1C 7.9 % (<5.7)
--- NOTE | 2023-09-30 15:26 | PC.NURSE ---
Pt asked if we could wait to pass meds, take vitals, etc. for a few hours because she is exhausted and needs a nap. Pt is still sleeping. Will pass all meds by 1700.
[2023-09-30] MEDS: predniSONE 10 MG TABLET PO (16:37)
[2023-09-30] MEDS: EMPAGLIFLOZIN 10 MG TABLET PO (16:38)
[2023-09-30] MEDS: CALCIUM CARBONATE (TUMS) 500 MG (200 MG ELEMENTAL) PO (16:38)
[2023-09-30] MEDS: amLODIPine BESYLATE 5 MG TABLET PO (16:38)
[2023-09-30] MEDS: lisinopriL 20 MG TABLET PO (16:38)
[2023-09-30] MEDS: INSULIN ASPART (*BKC) 100 UNITS/ML SUB-Q (16:43)
[2023-09-30 16:44] LABS: Glucose Point of Care 247 mg/dl (65-105)
[2023-09-30] MEDS: ATORVASTATIN 40 MG TABLET PO (20:25)
[2023-09-30 21:17] LABS: Glucose Point of Care 192 mg/dl (65-105)
--- NOTE | 2023-10-01 | ECHO_ITS ---
Patient Info Name: Sarah Hobbs Age: 83 years : 1940 Gender: Female Ht: 61 in Wt: 150 lbs BSA: 1.73 m2 HR: 80 bpm BP: 137 / 64 mmHg Heart Rhythm: Sinus Rhythm Technical Quality: Good Exam Date: 10/01/2023 3:28 PM Exam Location: Echo Lab Patient Status: Inpatient Admit Date: 09/30/2023 Staff Ordering Physician: Greg Thomas MD Rock [employer]imbing Team Member: Attending Provider: Greg Thomas MD Exam Type: CA echo doppler color flow Study Info Indications R55 - Syncope and collapse Complete two-dimensional, color flow and Doppler transthoracic echocardiogram is performed. Summary 1. Complete two-dimensional, color flow and Doppler transthoracic echocardiogram is performed. 2. Normal left and right ventricular size and systolic function. 3. Mildly calcified mitral valve and. 4. Trivial MR. 5. No valvular dysfunction identified. Left Ventricle Left ventricular chamber dimension is normal. Left ventricular systolic function is normal, estimated at 65-70%. The left ventricular diastolic function is grade I diastolic dysfunction. Right Ventricle Right ventricular chamber dimension is normal. Left Atria Left atrial chamber dimension is normal. Right Atria Right atrial chamber dimension is normal. Aortic Valve The aortic valve is normal. Pulmonic Valve The pulmonic valve is normal. Mitral Valve The mitral valve has normal leaflets. There is trace mitral valve regurgitation. The mitral valve annulus is mildly calcified. Tricuspid Valve The tricuspid valve leaflets are normal. Pericardium/Pleural The pericardium appears normal. Aorta The aortic root size at the sinus of Valsalva is normal. Left Ventricular Outflow Tract Name Value Normal LVOT 2D LVOT Diameter 2.0 cm LVOT Doppler LVOT Peak Gradient 5 mmHg LVOT Mean Gradient 3 mmHg LVOT VTI 31 cm LVOT VTI/AV VTI Ratio 1.0 LVOT Stroke Volume 93 ml LVOT CO 6.1 l/min LVOT CI 3.5 l/min/m2 Pulmonic Valve Name Value Normal PV Doppler PV Peak Gradient 4 mmHg Mitral Valve Name Value Normal MV Doppler MV Decel Cassia 513 cm/s2 MV PHT 53 ms MV Area (PHT) 4.2 cm2 4.0-5.0 MV Diastolic Function MV E Peak Velocity 94 cm/s MV A Peak Velocity 102 cm/s MV E/A 0.9
[2023-10-01 01:00] VITALS: BP 121/51; PULSE 75; RESP 20; TEMP 37.2; O2SAT 97
[2023-10-01 05:30] VITALS: BP 125/52; PULSE 64; RESP 20; TEMP 37.3; O2SAT 94
[2023-10-01 06:25] LABS: Basophils Percent Auto 0.1 % (0.2-1.2); Eosinophils Percent Auto 0.2 % (0-4.4); Hematocrit 38.8 % (37.0-47.0); Hemoglobin 12.1 g/dL (12.0-15.0); Immature Granulocyte Absolute 0.08 K/mm3 (0.00-0.031); Immature Granulocyte Percent A 0.8 % (0-0.5); Lymphocytes Percent Auto 10.8 % (18.3-44.2); Mean Corpuscular HGB Conc 31.2 g/dl (32-36); Mean Corpuscular Hemoglobin 28.1 pg (26-34); Mean Platelet Volume 10.3 fl (7.4-10.4); Monocytes Absolute Auto 0.5 K/mm3 (0.1-0.6); Monocytes Percent Auto 4.4 % (2.6-8.5); Neutrophils Absolute Auto 8.6 K/mm3 (1.3-6.7); Neutrophils Percent Auto 83.7 % (45.5-73.1); Platelet Count Result 157 k/mm3 (150-375); Red Blood Count 4.31 M/mm3 (4.2-5.4); Red Cell Distribution Width 15.9 % (11.5-14.5); White Blood Count 10.2 K/mm3 (4.5-10.0)
[2023-10-01 07:08] LABS: Anion Gap 6 mmol/L (8-16); Blood Urea Nitrogen 35 mg/dL (7-17); Calcium 8.7 mg/dL (8.4-10.2); Carbon Dioxide 20 mmol/L (22-30); Chloride 110 mmol/L (98-107); Estimated CRCL calculation 28 ml/min; Estimated Glomerular Filt Rate 43; Glucose 110 mg/dL (65-110); Phosphorus 3.3 mg/dL (2.5-4.5); Potassium 4.3 mmol/L (3.4-5.0); Sodium 136 mmol/L (137-145)
[2023-10-01 07:58] LABS: Glucose Point of Care 102 mg/dl (65-105)
[2023-10-01 08:00] VITALS: BP 137/64; PULSE 79
[2023-10-01] MEDS: OMEGA 3 POLYUNSAT FATTY ACIDS 1 GM CAP PO (08:16)
[2023-10-01] MEDS: CHOLECALCIFEROL 1,000 UNITS TABLET 2000 UNITS PO (08:16)
[2023-10-01] MEDS: PANTOPRAZOLE SODIUM IV 40 MG VIAL IV PUSH (08:16)
[2023-10-01] MEDS: lisinopriL 20 MG TABLET PO (08:16)
[2023-10-01] MEDS: ASCORBIC ACID 500 MG TABLET PO (08:16)
[2023-10-01] MEDS: predniSONE 10 MG TABLET PO (08:16)
[2023-10-01] MEDS: CALCIUM CARBONATE (TUMS) 500 MG (200 MG ELEMENTAL) PO ×2 (08:16→16:58)
[2023-10-01] MEDS: EMPAGLIFLOZIN 10 MG TABLET PO (08:16)
[2023-10-01] MEDS: amLODIPine BESYLATE 5 MG TABLET PO (08:16)
[2023-10-01] MEDS: MULTIVITAMINS THERAPEUTIC TAB (*BKC) 1 TABLET PO (08:16)
[2023-10-01] MEDS: ENOXAPARIN 40 MG/0.4 ML SYRINGE SUB-Q (08:17)
[2023-10-01 11:30] LABS: Glucose Point of Care 271 mg/dl (65-105)
[2023-10-01] MEDS: INSULIN ASPART (*BKC) 100 UNITS/ML SUB-Q ×3 (11:45→21:04)
[2023-10-01 12:00] VITALS: BP 125/46; PULSE 70; RESP 20; TEMP 36.6; O2SAT 95
[2023-10-01] MEDS: metroNIDAZOLE 500 MG/ISO 100ML 500 MG/100 ML BAG 100 MG IVPB ×2 (12:44→21:03)
[2023-10-01] MEDS: LACTATED RINGERS 1,000 ML 75 ML IV CONT (12:44)
[2023-10-01 16:00] VITALS: BP 139/52; PULSE 100; RESP 22; TEMP 36.5; O2SAT 100
--- NOTE | 2023-10-01 16:20 | WPDGICN ---
Assessment and Plan Assessment and plan (1) Colitis: Code(s): K52.9 - Noninfective gastroenteritis and colitis, unspecified Status: Acute Assessment and Plan: she is much better, no more pain or diarrhea and tolerating diet probably gastroenteritis/infectious denies any blood in stool (2) Gastroenteritis: Code(s): K52.9 - Noninfective gastroenteritis and colitis, unspecified Status: Acute (3) Nausea and vomiting: Code(s): R11.2 - Nausea with vomiting, unspecified Status: Acute Assessment and Plan: resolved, treated tolerating diet (4) CLINT (acute kidney injury): Code(s): N17.9 - Acute kidney failure, unspecified Status: Acute Assessment and Plan: improved, near baseline (5) Type 2 diabetes mellitus without complications: Qualifiers: Diabetes mellitus patrol captain insulin use: without prison use Qualified Code(s): E11.9 - Type 2 diabetes mellitus without complications Code(s): E11.9 - Type 2 diabetes mellitus without complications Status: Acute Assessment and Plan: on meds (6) Acute UTI: Code(s): N39.0 - Urinary tract infection, site not specified Status: Acute Assessment and Plan: on abx GI Consult Note Consult date/time: 10/01/23 16:20 Reason for consult: n/v, colitis, diarrhea. HPI: Sarah Hobbs is a 83 year old female with h/o DM on meds, HTN. She had recent episode of fall with presyncope recently resulting in right wrist fracture treated medically and has been back in the ER again. This time with sudden onset of lower abdominal pain associated with nausea and vomiting, near-syncopal episode at home and feeling lightheaded.?ER also had diarrhea, she was found to have dehydration and UTI. CT scan reviewed and showed diffuse thickening of the colon wall, consistent with colitis, most likely infectious/inflammatory. Started on antibiotics and now feeling much better, no more diarrhea, no nausea and tolerating regular diet. Last colonoscopy about 10 years ago per patient. Review of Systems Constitutional: Constitutional: Denies body ache(s) Eyes: Eyes: Denies blurry vision ENT: Reports Normal hearing present Cardiovascular: Cardiovascular: Denies chest pain and Reports lightheadedness Respiratory: Respiratory: Denies cough Gastrointestinal: Gastrointestinal: Reports abdominal pain, Reports diarrhea, Reports nausea and Reports vomiting Genitourinary: Genitourinary: Denies urinary urgency Musculoskeletal: Comments: recent wrist fracture Integumentary/Breasts: Skin/Breast: Denies rash Neurologic: Denies Abnormal speech present Psychiatric: Psychiatric: Denies behavioral changes [facility] Past Medical History Medical History (Updated 09/30/23 @ 13:36 by Greg Thomas MD) CKD (chronic kidney disease) stage 3, GFR 30-59 ml/min Colitis Essential (primary) hypertension Osteopenia Polymyalgia rheumatica Pure hypercholesterolemia, unspecified Type 2 diabetes mellitus without complications Surgical History Surgical History History of appendectomy (~1944) Family History Family History Mother Hypertension Family history of rheumatoid arthritis Father Malignant neoplasm of prostate Other Family history of elevated blood lipids Family history of multiple sclerosis Social History Social History Smoking status: Never smoker Alcohol intake: never Substance use: never Substance use type: does not use Do You Feel Safe in your Home?: Yes Lack of Transportation: No Lack of Food: Never True Current Housing: I Have Housing Concerned About Future Housing: No Difficulty Paying Gas/Electric Bills: No Difficulty Paying for Meds: No Currently Unemployed: No Education: Bachelor's Degree Diffi
[2023-10-01 16:32] LABS: Glucose Point of Care 250 mg/dl (65-105)
--- NOTE | 2023-10-01 18:08 | PM.IMPN ---
Progress Note: A&P Assessment and Plan (1) Gastroenteritis: Code(s): K52.9 - Noninfective gastroenteritis and colitis, unspecified Status: Acute (2) Colitis: Code(s): K52.9 - Noninfective gastroenteritis and colitis, unspecified Status: Acute (3) Acute UTI: Code(s): N39.0 - Urinary tract infection, site not specified Status: Acute (4) Type 2 diabetes mellitus without complications: Qualifiers: Diabetes mellitus alf insulin use: without alf use Qualified Code(s): E11.9 - Type 2 diabetes mellitus without complications Code(s): E11.9 - Type 2 diabetes mellitus without complications Status: Acute (5) Essential (primary) hypertension: Code(s): I10 - Essential (primary) hypertension Status: Acute (6) Pure hypercholesterolemia, unspecified: Code(s): E78.00 - Pure hypercholesterolemia, unspecified Status: Acute (7) Osteopenia: Qualifiers: Osteopenia location: unspecified Qualified Code(s): M85.80 - Other specified disorders of bone density and structure, unspecified site Code(s): M85.80 - Other specified disorders of bone density and structure, unspecified site Status: Acute (8) CLINT (acute kidney injury): Code(s): N17.9 - Acute kidney failure, unspecified Status: Acute (9) Nausea and vomiting: Code(s): R11.2 - Nausea with vomiting, unspecified Status: Acute Plan Admit patient to medical unit under full inpatient status Patient has CLINT due to dehydration Patient given 1 L of IV fluids in the ER Continue patient on Ringer's lactate at 75 cc an hour Strict input and output monitoring CT scan of the abdomen pelvis was done which showed findings consistent with colitis Patient also has been diagnosed with UTI and started on IV Rocephin in the ER DC IV Rocephin and switch patient to IV ciprofloxacin and metronidazole to cover for both colitis and UTI Follow-up on urine cultures Leukocytosis is slowly downtrending GI consult ordered for evaluation and further treatment recommendations Patient started on Accu-Cheks with Insulin coverage as per protocol Patient has multiple falling episodes at home and 3 ER visits in the last 4 weeks 2D echo with color-flow Doppler ordered to assess cardiac structure and function Ordered PT/OT evaluation and treatment She would benefit from home health care versus short-term group home facility placement DC planning home in a.m. if cleared by GI ? Patient seen and examined at bedside during my morning rounds ? Collaborated with patient's nurse at the bedside in detail and addressed all concerns ? Labs, electrolytes, radiology, investigations and test results reviewed ? Consult/Nursing/Ancilliary notes on the chart reviewed and appreciated ? Spoke with patient/family at the bedside and answered all the questions that they had Repeat labs in a.m. Electrolyte replacement as per protocol. Patient will be monitored very closely on the floor. Further recommendations as per the hospital course. Subjective Date/time seen: 10/01/23 18:08 Interval history: Patient feeling better today. Abdominal pain has improved. No major issues. Review of Systems Review of Systems: 14 systems were reviewed with pertinent positives and negatives per HPI. Except as documented in the HPI/progress notes, all other systems were reviewed and are negative. All systems reviewed & are unremarkable except as noted in HPI and below Exam Narrative: PHYSICAL EXAMINATION: Vital signs: Please see the chart General physical exam: Elderly lady, bed, appears to be tired and fatigued, pleasant and cooperative with exam Head/eyes: Atraumatic, EOMI, PERRLA ENT: +dry mucous membranes, nasal passages clear Neck: Supple, full range of motion, trachea midline CVS: S1 + S2, regular rate and rhythm, no murmurs Respiratory: Bilaterally fair air entry in both lung aiken, mild
[2023-10-01 20:45] VITALS: BP 137/56; PULSE 89; RESP 16; TEMP 36.4; O2SAT 96
[2023-10-01 21:02] LABS: Glucose Point of Care 282 mg/dl (65-105)
[2023-10-01] MEDS: ATORVASTATIN 40 MG TABLET PO (21:04)
[2023-10-02 01:45] VITALS: BP 133/54; PULSE 65; RESP 20; TEMP 36.1; O2SAT 96
[2023-10-02] MEDS: LACTATED RINGERS 1,000 ML 75 ML IV CONT (05:02)
[2023-10-02] MEDS: metroNIDAZOLE 500 MG/ISO 100ML 500 MG/100 ML BAG 100 MG IVPB ×2 (05:03→14:22)
[2023-10-02 05:50] VITALS: BP 138/59; PULSE 59; RESP 16; TEMP 36.4; O2SAT 96
[2023-10-02 06:55] LABS: Basophils Percent Auto 0.2 % (0.2-1.2); Eosinophils Absolute Auto 0.3 K/mm3 (0-0.3); Hemoglobin 11.7 g/dL (12.0-15.0); Immature Granulocyte Absolute 0.05 K/mm3 (0.00-0.031); Immature Granulocyte Percent A 0.6 % (0-0.5); Lymphocytes Absolute Auto 1.76 K/mm3 (0.9-3.2); Lymphocytes Percent Auto 20.9 % (18.3-44.2); Mean Corpuscular HGB Conc 31.6 g/dl (32-36); Mean Corpuscular Hemoglobin 28.4 pg (26-34); Mean Corpuscular Volume 89.8 fl (80-100); Mean Platelet Volume 10.6 fl (7.4-10.4); Monocytes Absolute Auto 0.6 K/mm3 (0.1-0.6); Neutrophils Absolute Auto 5.7 K/mm3 (1.3-6.7); Neutrophils Percent Auto 68.3 % (45.5-73.1); Platelet Count Result 154 k/mm3 (150-375); Red Blood Count 4.12 M/mm3 (4.2-5.4); Red Cell Distribution Width 15.4 % (11.5-14.5); White Blood Count 8.4 K/mm3 (4.5-10.0)
[2023-10-02 06:59] LABS: Anion Gap 3 mmol/L (8-16); Blood Urea Nitrogen 30 mg/dL (7-17); Calcium 8.9 mg/dL (8.4-10.2); Carbon Dioxide 24 mmol/L (22-30); Chloride 108 mmol/L (98-107); Estimated CRCL calculation 30 ml/min; Estimated Glomerular Filt Rate 47; Glucose 116 mg/dL (65-110); Potassium 3.9 mmol/L (3.4-5.0); Sodium 135 mmol/L (137-145)
[2023-10-02 07:54] VITALS: BP 152/68; PULSE 73; RESP 15; TEMP 36.6; O2SAT 99
[2023-10-02 07:56] LABS: Glucose Point of Care 94 mg/dl (65-105)
[2023-10-02] MEDS: CHOLECALCIFEROL 1,000 UNITS TABLET 2000 UNITS PO (09:10)
[2023-10-02] MEDS: CALCIUM CARBONATE (TUMS) 500 MG (200 MG ELEMENTAL) PO (09:11)
[2023-10-02] MEDS: ASCORBIC ACID 500 MG TABLET PO (09:12)
[2023-10-02] MEDS: ENOXAPARIN 40 MG/0.4 ML SYRINGE SUB-Q (09:12)
[2023-10-02] MEDS: MULTIVITAMINS THERAPEUTIC TAB (*BKC) 1 TABLET PO (09:12)
[2023-10-02] MEDS: lisinopriL 20 MG TABLET PO (09:12)
[2023-10-02] MEDS: EMPAGLIFLOZIN 10 MG TABLET PO (09:12)
[2023-10-02] MEDS: OMEGA 3 POLYUNSAT FATTY ACIDS 1 GM CAP PO (09:12)
[2023-10-02] MEDS: amLODIPine BESYLATE 5 MG TABLET PO (09:12)
[2023-10-02] MEDS: predniSONE 10 MG TABLET PO (09:12)
[2023-10-02] MEDS: PANTOPRAZOLE SODIUM IV 40 MG VIAL IV PUSH (09:16)
[2023-10-02 11:26] VITALS: O2SAT 96
[2023-10-02 11:47] LABS: Glucose Point of Care 197 mg/dl (65-105)
--- NOTE | 2023-10-02 13:45 | PM.DS ---
DS: Admitting Diagnosis Discharge Date 10/02/2023: Admitting Diagnosis Colitis Gastroenteritis CLINT Nausea vomiting DS: Discharge Diagnosis Discharge Diagnosis (1) Nausea and vomiting: Code(s): R11.2 - Nausea with vomiting, unspecified Status: Acute (2) CLINT (acute kidney injury): Code(s): N17.9 - Acute kidney failure, unspecified Status: Acute (3) Colitis: Code(s): K52.9 - Noninfective gastroenteritis and colitis, unspecified Status: Acute (4) Gastroenteritis: Code(s): K52.9 - Noninfective gastroenteritis and colitis, unspecified Status: Acute (5) Type 2 diabetes mellitus without complications: Qualifiers: Diabetes mellitus lead nitrate processor insulin use: without senior living use Qualified Code(s): E11.9 - Type 2 diabetes mellitus without complications Code(s): E11.9 - Type 2 diabetes mellitus without complications Status: Acute (6) Polymyalgia rheumatica: Code(s): M35.3 - Polymyalgia rheumatica Status: Acute (7) Bilateral lower extremity edema: Code(s): R60.0 - Localized edema Status: Acute (8) CKD (chronic kidney disease) stage 3, GFR 30-59 ml/min: Qualifiers: Chronic kidney disease stage 3 subtype: stage 3b (GFR 30-44) Qualified Code(s): N18.32 - Chronic kidney disease, stage 3b Code(s): N18.30 - Chronic kidney disease, stage 3 unspecified Status: Acute (9) Essential (primary) hypertension: Code(s): I10 - Essential (primary) hypertension Status: Acute (10) Pure hypercholesterolemia, unspecified: Code(s): E78.00 - Pure hypercholesterolemia, unspecified Status: Acute (11) Osteopenia: Qualifiers: Osteopenia location: unspecified Qualified Code(s): M85.80 - Other specified disorders of bone density and structure, unspecified site Code(s): M85.80 - Other specified disorders of bone density and structure, unspecified site Status: Acute DS: Summary Hospital Course Reason for hospitalization: Patient came to the ER with complaints of lower abdominal associated with nausea and vomiting Hospital Course: H&P: HPI History of Present Illness Date/Time: 09/30/23? 13:25 Chief Complaint: Patient came to the ER with complaints of lower abdominal associated with nausea and vomiting Narrative: 83 years old pleasant white female with chronic medical issues has recently been started on insulin for her diabetes mellitus.? She has had episodes of the falls recently resulting in right wrist fracture.? This is her 3rd ER visit in the last 4 weeks.? She is complaining of sudden onset of lower abdominal pain yesterday with nausea and vomiting and had a near-syncopal episode at home.? Patient evaluated in the ED and workup was done which showed findings consistent with dehydration and UTI.? She also had colitis diagnosed on CT scan of the abdomen and pelvis.? She has been started on IV antibiotics and being admitted for medical management and further workup. 10/01/2023: Plan Admit patient to medical unit under full inpatient status Patient has CLINT due to dehydration Patient given 1 L of IV fluids in the ER Continue patient on Ringer's lactate at 75 cc an hour Strict input and output monitoring CT scan of the abdomen pelvis was done which showed findings consistent with colitis Patient also has been diagnosed with UTI and started on IV Rocephin in the ER DC IV Rocephin and switch patient to IV ciprofloxacin and metronidazole to cover for both colitis and UTI Follow-up on urine cultures Leukocytosis is slowly downtrending GI consult ordered for evaluation and further treatment recommendations Patient started on Accu-Cheks with Insulin coverage as per protocol Patient has multiple falling episodes at home and 3 ER visits in the last 4 weeks 2D echo with color-flow Doppler ordered to assess cardiac structure and function Ordered PT/OT evaluation and treatment She would benefit
[2023-10-02 14:05] VITALS: BP 127/48; PULSE 78; RESP 17; TEMP 37.3; O2SAT 95
--- NOTE | 2023-10-02 16:24 | WPDGIPROGNO ---
Progress Note: A&P Assessment and Plan (1) Colitis: Code(s): K52.9 - Noninfective gastroenteritis and colitis, unspecified Status: Acute Assessment and Plan: clinically improved she is going home we will set up colonoscopy in 1 month (2) Gastroenteritis: Code(s): K52.9 - Noninfective gastroenteritis and colitis, unspecified Status: Acute Assessment and Plan: resolved (3) Type 2 diabetes mellitus without complications: Qualifiers: Diabetes mellitus alf insulin use: without long chain quiller tender use Qualified Code(s): E11.9 - Type 2 diabetes mellitus without complications Code(s): E11.9 - Type 2 diabetes mellitus without complications Status: Acute (4) CKD (chronic kidney disease) stage 3, GFR 30-59 ml/min: Qualifiers: Chronic kidney disease stage 3 subtype: stage 3b (GFR 30-44) Qualified Code(s): N18.32 - Chronic kidney disease, stage 3b Code(s): N18.30 - Chronic kidney disease, stage 3 unspecified Status: Acute Subjective Date/time seen: 10/02/23 16:24 Interval history: she is doing great, tolerating diet, no diarrhea she is ready to go home Review of Systems Review of Systems: All systems reviewed & are unremarkable except as noted in HPI and below Exam Const: General: comfortable and no acute distress HENMT: Face/Nose/Sinus: Normal nares present Eyes: General: appearance normal, both eyes and all related structures Neck: Neck: supple Resp: Auscultation: clear to auscultation bilaterally Cardio: Rate: regular rate Rhythm: regular rhythm GI: Inspection: non-distended GI Palp: Yes Soft to palpation and No Tenderness to palpation present (GI) Auscultation: normal bowel sounds Skin: General skin exam: normal color Neuro: Speech: normal speech Motor exam (neuro): 5/5 motor strength present throughout Extrem: General: normal to inspection Other: brace in Rt arm Psych: Mental Status: mental status grossly normal Objective Data Vital Signs Vital Signs: Vital Signs - 24 hr 10/01/23 20:45 10/02/23 01:45 10/02/23 05:50 Temperature 97.5 F L 97 F L 97.6 F Pulse Rate 89 65 59 L Respiratory Rate 16 20 16 Blood Pressure 137/56 L 133/54 L 138/59 L Pulse Oximetry 96 96 96 Oxygen Delivery 10/02/23 07:54 10/02/23 11:26 10/02/23 09:10 Temperature 97.9 F Pulse Rate 73 Respiratory Rate 15 Blood Pressure 152/68 H Pulse Oximetry 99 96 Oxygen Delivery Room Air Room Air 10/02/23 14:05 Temperature 99.2 F Pulse Rate 78 Respiratory Rate 17 Blood Pressure 127/48 L Pulse Oximetry 95 Oxygen Delivery Intake/Output Intake/Output: Intake & Output 09/29/23 09/30/23 10/01/23 10/02/23 23:59 23:59 23:59 23:59 Intake Total 3400 2911 1730 Output Total 2125 1775 3125 Balance 1275 1136 -5944 Meds/Results Medications: Active Medications Generic Name Dose Route Start Last Admin Trade Name Freq PRN Reason Stop Dose Admin Acetaminophen 650 mg 09/30/23 13:43 Acetaminophen 325 Mg Tablet PO Q4H PRN Mild Pain (1-3) or Fever Al Hydrox/Mg Hydrox/Simethicone 30 ml 09/30/23 13:43 Mag Hydrox/Al Hydrox/Simeth 30 Ml Udc PO QID PRN Dyspepsia Amlodipine Besylate 5 mg 09/30/23 13:55 10/02/23 09:12 Amlodipine Besylate 5 Mg Tablet PO 5 mg DAILY DOTTIE Administration Ascorbic Acid 500 mg 10/01/23 09:00 10/02/23 09:12 Ascorbic Acid 500 Mg Tablet PO 500 mg DAILY DOTTIE Administration Atorvastatin Calcium 40 mg 09/30/23 21:00 10/01/23 21:04 Atorvastatin 40 Mg Tablet PO 40 mg QHS DOTTIE Administration Calcium Carbonate 500 mg 09/30/23 17:00 10/02/23 09:11 Calcium Carbonate (Tums) 500 Mg (200 Mg Elemental) PO 500 mg BID DOTTIE Administration Dextrose 12.5 gm 09/30/23 13:48 Dextrose 50% 25 Gm/50 Ml Syringe IV PUSH PRN PRN Hypoglycemia Protocol Empagliflozin 10 mg 09/30/23 13:55 10/02/23 09:12 Empagliflozi
[2023-10-02 17:00] VITALS: BP 149/67; PULSE 87; RESP 16; TEMP 37; O2SAT 96
[2023-10-02] MEDS: INSULIN ASPART (*BKC) 100 UNITS/ML SUB-Q (17:02)
[2023-10-02 17:09] LABS: Glucose Point of Care 289 mg/dl (65-105)
== END 2023-10-02 17:20 | disposition home or self-care (01) | DRG 392 ==
LOC: ANHED 06:41 → ANH3MEDSUR 07:23
PROVIDERS: Admitting Provider Internal Medicine Infectious Disease; Emergency Provider Emergency Medicine; PCP Family Medicine; Visit Provider Family Medicine
DX: K52.9 Noninfective gastroenteritis and colitis, unspecified (principal); N17.9 Acute kidney failure, unspecified; E86.0 Dehydration; I12.9 Hypertensive chronic kidney disease with stage 1 through stage 4 chronic kidney disease, or unspecified chronic kidney disease; E11.22 Type 2 diabetes mellitus with diabetic chronic kidney disease; E78.00 Pure hypercholesterolemia, unspecified; M35.3 Polymyalgia rheumatica; M85.80 Other specified disorders of bone density and structure, unspecified site; N18.32 Chronic kidney disease, stage 3b; Z79.84 Long term (current) use of oral hypoglycemic drugs; Z79.4 Long term (current) use of insulin; Z20.822 Contact with and (suspected) exposure to COVID-19; Z91.81 History of falling; Z90.49 Acquired absence of other specified parts of digestive tract; Z88.0 Allergy status to penicillin
CPT/HCPCS: 36415; 71045; 74177; 80048; 80053; 81001; 82948; 83036; 83605; 83690; 84100; 85025; 86850; 86900; 86901; 87040; 87086; 87493; 87637; 93005; 93306; 96361; 96365; 96375; 97161; 97165; 99285; A9270; C9113; G0378; J0696; J1650; J1815; J1836; J2405; J7030; J7120; J7512; Q9967

== ENCOUNTER 2023-11-15 12:38 | Outpatient (CLI) | payer MEDICARE, SELFPAY ==
[2023-11-15 13:07] LABS: Basophils Percent Auto 0.3 % (0.2-1.2); Eosinophils Absolute Auto 0.1 K/mm3 (0-0.3); Eosinophils Percent Auto 1.3 % (0-4.4); Hematocrit 44.2 % (37.0-47.0); Hemoglobin 13.7 g/dL (12.0-15.0); Immature Granulocyte Absolute 0.11 K/mm3 (0.00-0.031); Immature Granulocyte Percent A 1.1 % (0-0.5); Lymphocytes Absolute Auto 1.46 K/mm3 (0.9-3.2); Lymphocytes Percent Auto 14.3 % (18.3-44.2); Mean Corpuscular Hemoglobin 28.5 pg (26-34); Mean Corpuscular Volume 91.9 fl (80-100); Mean Platelet Volume 10.3 fl (7.4-10.4); Monocytes Percent Auto 9.5 % (2.6-8.5); Neutrophils Absolute Auto 7.5 K/mm3 (1.3-6.7); Neutrophils Percent Auto 73.5 % (45.5-73.1); Platelet Count Result 218 k/mm3 (150-375); Red Blood Count 4.81 M/mm3 (4.2-5.4); Red Cell Distribution Width 18.6 % (11.5-14.5); White Blood Count 10.2 K/mm3 (4.5-10.0)
[2023-11-15 13:23] LABS: Appearance Urine Clear (Clear); Bacteria Urine None Seen /hpf; Bilirubin Urine Negative (Negative); Blood Urine Negative (Negative); Color Urine Yellow (Yellow); Glucose Urine UA 2+ mg/dL (Negative); Hyaline Casts Urine Present /lpf; Ketones Urine Trace mg/dL (Negative); Leukocyte Esterase Ur 2+ LEU/UL (Negative); Need Manual Microscopic Reviewed; Nitrate Urine Negative (Negative); Protein Urine Negative (Negative); RBC Urine 0-2 /hpf (0-2); Squamous Epithelial Cell Urine Occasional /hpf (Few); Urobilinogen Urine 0.2 mg/dL (<2.0); WBC Urine 21-50 /hpf (0-3)
[2023-11-15 13:27] LABS: Add Urine Microscopic? YES
[2023-11-15 13:39] LABS: Alanine Aminotransferase 51 U/L (6-35); Albumin Level 4.1 g/dL (3.5-5.1); Alkaline Phosphatase 86 U/L (38-126); Anion Gap 7 mmol/L (4-12); Aspartate Amino Transferase 36 U/L (14-36); Bilirubin,Total 0.5 mg/dL (0.2-1.3); Blood Urea Nitrogen 76 mg/dL (7-17); Calcium 9.9 mg/dL (8.4-10.2); Carbon Dioxide 25 mmol/L (22-30); Chloride 102 mmol/L (98-107); Estimated Glomerular Filt Rate 31; Glucose 131 mg/dL (65-110); Potassium 5.1 mmol/L (3.4-5.0); Sodium 134 mmol/L (137-145)
== END 2023-11-15 12:39 | disposition home or self-care (01) ==
LOC: ANHLAB 12:42
PROVIDERS: PCP Family Medicine; Visit Provider Family Medicine
DX: R30.0 Dysuria (principal); R53.1 Weakness; M35.3 Polymyalgia rheumatica; E78.00 Pure hypercholesterolemia, unspecified; I12.9 Hypertensive chronic kidney disease with stage 1 through stage 4 chronic kidney disease, or unspecified chronic kidney disease; N18.32 Chronic kidney disease, stage 3b
CPT/HCPCS: 36415; 80053; 81001; 85025; 87086

== ENCOUNTER 2023-11-15 14:28 | Outpatient (CLI) | payer MEDICARE, SELFPAY ==
--- NOTE | ~2023-11-15 | XR_ITS ---
XR ankle RT min 3V, XR foot RT min 3V 11/15/2023 14:49 Indication: Status post fall. Right ankle pain. Procedure: 4 views right ankle and 4 views right foot Comparison: No prior studies for comparison. Findings: There is a minimally displaced oblique distal fibular fracture. Moderate lateral soft tissu e swelling. Osteopenia. Ankle mortise intact. Lisfranc joint intact. No other fractures. No foreign b odies. Impression: 1: Minimally displaced oblique distal fibular fracture with moderate soft tissue swelling. Reviewed, dictated and finalized at location A. Impression: 1: Minimally displaced oblique distal fibular fracture with moderate soft tissu e swelling. Impression: 1: Minimally displaced oblique distal fibular fracture with moderate soft tissu e swelling.
== END 2023-11-15 14:29 ==
PROVIDERS: PCP Family Medicine; Visit Provider Family Medicine
DX: S82.431A Displaced oblique fracture of shaft of right fibula, initial encounter for closed fracture (principal); M25.471 Effusion, right ankle; W19.XXXA Unspecified fall, initial encounter
CPT/HCPCS: 73610; 73630

== ENCOUNTER 2023-11-16 13:56 | Outpatient (CLI) | payer MEDICARE, SELFPAY ==
[2023-11-16 17:37] LABS: Alanine Aminotransferase 50 U/L (6-35); Albumin Level 3.8 g/dL (3.5-5.1); Alkaline Phosphatase 104 U/L (38-126); Anion Gap 6 mmol/L (4-12); Aspartate Amino Transferase 49 U/L (14-36); Bilirubin,Total 0.7 mg/dL (0.2-1.3); Blood Urea Nitrogen 60 mg/dL (7-17); Calcium 10.2 mg/dL (8.4-10.2); Carbon Dioxide 24 mmol/L (22-30); Chloride 102 mmol/L (98-107); Estimated Glomerular Filt Rate 36; Glucose 159 mg/dL (65-110); Sodium 132 mmol/L (137-145)
== END 2023-11-16 13:57 | disposition home or self-care (01) ==
LOC: ANHGOSHLAB 13:58
PROVIDERS: PCP Family Medicine; Visit Provider Nurse Practitioner Family
DX: N18.32 Chronic kidney disease, stage 3b (principal)
CPT/HCPCS: 36415; 80053

== ENCOUNTER 2023-12-04 13:53 | Outpatient (CLI) | payer MEDICARE, SELFPAY ==
[2023-12-04 14:35] LABS: Albumin Level 4.2 g/dL (3.5-5.1); Anion Gap 8 mmol/L (4-12); Blood Urea Nitrogen 55 mg/dL (7-17); Calcium 10.2 mg/dL (8.4-10.2); Carbon Dioxide 27 mmol/L (22-30); Chloride 100 mmol/L (98-107); Estimated Glomerular Filt Rate 31; Glucose 204 mg/dL (65-110); Phosphorus 3.9 mg/dL (2.5-4.5); Potassium 4.9 mmol/L (3.4-5.0); Sodium 135 mmol/L (137-145)
== END 2023-12-04 13:54 | disposition home or self-care (01) ==
PROVIDERS: PCP Family Medicine; Visit Provider Internal Medicine Nephrology
DX: N17.9 Acute kidney failure, unspecified (principal)
CPT/HCPCS: 36415; 80069

== ENCOUNTER 2024-01-15 13:30 | Outpatient (RCR) | payer MEDICARE, SELFPAY ==
[2023-11-15 10:50] VITALS: BMI 27.3
[2023-11-15 10:54] VITALS: BMI 27.3
[2024-01-15 13:30] VITALS: BMI 27.3
== END 2024-01-22 14:03 | disposition home or self-care (01) ==
LOC: ANHDMC 13:30
PROVIDERS: PCP Family Medicine; Visit Provider Family Medicine
DX: E11.65 Type 2 diabetes mellitus with hyperglycemia (principal); Z71.3 Dietary counseling and surveillance; Z71.89 Other specified counseling
CPT/HCPCS: 95249; 97802; 97803; G0108

== ENCOUNTER 2024-01-31 15:32 | Outpatient (CLI) | payer MEDICARE, SELFPAY ==
[2024-01-31 19:23] LABS: Anion Gap 8 mmol/L (4-12); Blood Urea Nitrogen 53 mg/dL (7-17); Calcium 9.6 mg/dL (8.4-10.2); Carbon Dioxide 24 mmol/L (22-30); Chloride 103 mmol/L (98-107); Estimated Glomerular Filt Rate 31; Glucose 189 mg/dL (65-110); Phosphorus 3.2 mg/dL (2.5-4.5); Potassium 4.5 mmol/L (3.4-5.0); Sodium 135 mmol/L (137-145)
== END 2024-01-31 15:33 | disposition home or self-care (01) ==
LOC: ANHGOSHLAB 15:34
PROVIDERS: PCP Family Medicine; Visit Provider Internal Medicine Nephrology
DX: N18.30 Chronic kidney disease, stage 3 unspecified (principal)
CPT/HCPCS: 36415; 80069

== ENCOUNTER 2024-02-21 13:56 | Outpatient (CLI) | payer MEDICARE, SELFPAY ==
--- NOTE | ~2024-02-21 | US_ITS ---
US renal BI 02/21/2024 14:14 Procedure: Realtime transabdominal ultrasound of the kidneys and bladder. Indication: Chronic renal disease Comparison: No prior studies for comparison. Findings: Renal echotexture is normal bilaterally without hydronephrosis, contour deforming mass or r enal calculus. There is mild left renal caliectasis. The right kidney measures 7.6 cm and left kidney measures 8.4 cm. Bladder within normal limits. Impression: 1: Mild left renal caliectasis. Reviewed, dictated and finalized at location B. Impression: 1: Mild left renal caliectasis.
== END 2024-02-21 13:57 ==
LOC: GOSHIMG 13:56
PROVIDERS: PCP Family Medicine; Visit Provider Internal Medicine Nephrology
DX: E11.22 Type 2 diabetes mellitus with diabetic chronic kidney disease (principal); I12.9 Hypertensive chronic kidney disease with stage 1 through stage 4 chronic kidney disease, or unspecified chronic kidney disease; N18.32 Chronic kidney disease, stage 3b; N28.89 Other specified disorders of kidney and ureter
CPT/HCPCS: 76775

== ENCOUNTER 2024-03-13 11:00 | Outpatient (CLI) | payer MEDICARE, SELFPAY ==
--- NOTE | 2024-03-13 11:53 | PCCARD ---
JOSEP MARIN REGISTRA @ [facility] ACTIVATED AN ECHO ORDER BY MISTAKE 03/13/24. I CANCELLED THE ORDER. I DID NOT SEE IN DR MENDOSA OFFICE NOTE 11/2023 ABOUT REPEATING AN ECHO. PATIENTS LAST ECHO WAS 09/2023.
[2024-03-13 12:54] LABS: Basophils Percent Auto 0.5 % (0.2-1.2); Eosinophils Absolute Auto 0.1 K/mm3 (0-0.3); Eosinophils Percent Auto 1.2 % (0-4.4); Hematocrit 42.5 % (37.0-47.0); Hemoglobin 13.8 g/dL (12.0-15.0); Immature Granulocyte Absolute 0.13 K/mm3 (0.00-0.031); Immature Granulocyte Percent A 1.6 % (0-0.5); Lymphocytes Absolute Auto 2.75 K/mm3 (0.9-3.2); Mean Corpuscular HGB Conc 32.5 g/dl (32-36); Mean Corpuscular Hemoglobin 30.5 pg (26-34); Mean Platelet Volume 10.6 fl (7.4-10.4); Monocytes Absolute Auto 0.8 K/mm3 (0.1-0.6); Monocytes Percent Auto 9.7 % (2.6-8.5); Neutrophils Absolute Auto 4.5 K/mm3 (1.3-6.7); Platelet Count Result 181 k/mm3 (150-375); Red Blood Count 4.52 M/mm3 (4.2-5.4); Red Cell Distribution Width 15.4 % (11.5-14.5); White Blood Count 8.3 K/mm3 (4.5-10.0)
[2024-03-13 13:50] LABS: Erythrocyte Sedimentation Rate 12 mm/hr (0-20)
[2024-03-13 14:07] LABS: Vitamin D 25 Hydroxy 79.4 ng/mL
[2024-03-13 14:20] LABS: Thyroid Stimulating Hormone Reflex 0.553 uIU/mL (0.465-4.68)
[2024-03-13 14:36] LABS: Alanine Aminotransferase 24 U/L (6-35); Alkaline Phosphatase 55 U/L (38-126); Anion Gap 10 mmol/L (4-12); Aspartate Amino Transferase 36 U/L (14-36); Bilirubin,Total 0.7 mg/dL (0.2-1.3); Blood Urea Nitrogen 51 mg/dL (7-17); CRP < 0.5 mg/dL (<1.0); Calcium 9.6 mg/dL (8.4-10.2); Carbon Dioxide 25 mmol/L (22-30); Chloride 103 mmol/L (98-107); Cholesterol 184 mg/dL (0-200); Estimated Glomerular Filt Rate 36; Glucose 98 mg/dL (65-110); HDL Direct 46 mg/dL; Sodium 138 mmol/L (137-145); Triglycerides 182 mg/dL (<150)
[2024-03-13 14:55] LABS: LDL Cholesterol Direct 95 mg/dL
[2024-03-13 15:07] LABS: Hemoglobin A1C 7.3 % (<5.7)
== END 2024-03-13 11:01 | disposition home or self-care (01) ==
PROVIDERS: PCP Family Medicine; Visit Provider Family Medicine
DX: E78.5 Hyperlipidemia, unspecified (principal); E53.8 Deficiency of other specified B group vitamins; E11.22 Type 2 diabetes mellitus with diabetic chronic kidney disease; I12.9 Hypertensive chronic kidney disease with stage 1 through stage 4 chronic kidney disease, or unspecified chronic kidney disease; N18.32 Chronic kidney disease, stage 3b; E55.9 Vitamin D deficiency, unspecified; M35.3 Polymyalgia rheumatica
CPT/HCPCS: 36415; 80053; 80061; 82306; 82607; 83036; 84443; 85025; 85652; 86140

== ENCOUNTER 2024-03-14 12:44 | Outpatient (NON) | payer MEDICARE, SELFPAY ==
[2024-03-14 14:19] LABS: Creatinine Urine 54.2 mg/dL
[2024-03-14 14:23] LABS: MALB Creatinine Ratio 39.3 mg/g (0-30); Microalbumin Urine Random 21.3 mg/L (0-16.7)
== END 2024-03-14 12:45 | disposition home or self-care (01) ==
LOC: ANHGOSHLAB 12:45
PROVIDERS: PCP Family Medicine; Visit Provider Family Medicine
DX: E11.9 Type 2 diabetes mellitus without complications (principal)
CPT/HCPCS: 82043

== ENCOUNTER 2024-04-01 14:15 | Outpatient (RCR) | payer MEDICARE, SELFPAY ==
[2024-02-19 10:50] VITALS: BMI 26.4
[2024-02-19 10:53] VITALS: BMI 26.4
== END 2024-05-05 10:37 | disposition home or self-care (01) ==
LOC: ANHDMC 14:15
PROVIDERS: PCP Family Medicine; Visit Provider Family Medicine
DX: E11.65 Type 2 diabetes mellitus with hyperglycemia (principal); Z71.3 Dietary counseling and surveillance; Z71.89 Other specified counseling
CPT/HCPCS: 97803; G0108

== ENCOUNTER 2024-05-28 09:02 | Outpatient (CLI) | payer MEDICARE, SELFPAY ==
[2024-05-28 13:26] LABS: Albumin Level 4.1 g/dL (3.5-5.1); Anion Gap 10 mmol/L (4-12); Blood Urea Nitrogen 42 mg/dL (7-17); Calcium 9.6 mg/dL (8.4-10.2); Carbon Dioxide 26 mmol/L (22-30); Chloride 103 mmol/L (98-107); Estimated Glomerular Filt Rate 43; Glucose 100 mg/dL (65-110); Phosphorus 3.4 mg/dL (2.5-4.5); Potassium 3.6 mmol/L (3.4-5.0); Sodium 139 mmol/L (137-145)
[2024-05-28 13:39] LABS: Complement C3 113 mg/dL (88-165)
[2024-05-30 02:39] LABS: Protein, Total 6.3 g/dL (6.1-8.1)
[2024-05-30 15:03] LABS: Albumin 3.7 g/dL (3.8-4.8); Alpha 1 Globulin 0.4 g/dL (0.2-0.3); Alpha 2 Globulin 0.8 g/dL (0.5-0.9); Beta 1 Globulin 0.4 g/dL (0.4-0.6); Gamma Globulin 0.6 g/dL (0.8-1.7)
[2024-05-31 13:54] LABS: Anti Glomerular Basement Memb <1.0 AI
[2024-06-01 12:29] LABS: ANCA Screen NEGATIVE (NEGATIVE)
== END 2024-05-28 09:03 | disposition home or self-care (01) ==
LOC: ANHGOSHLAB 09:04
PROVIDERS: PCP Family Medicine; Visit Provider Internal Medicine Nephrology
DX: I12.9 Hypertensive chronic kidney disease with stage 1 through stage 4 chronic kidney disease, or unspecified chronic kidney disease (principal); E11.22 Type 2 diabetes mellitus with diabetic chronic kidney disease; N18.32 Chronic kidney disease, stage 3b
CPT/HCPCS: 36415; 80069; 83520; 84155; 84165; 86036; 86038; 86039; 86160; 86225

== ENCOUNTER 2024-05-29 15:26 | Outpatient (NON) | payer MEDICARE, SELFPAY ==
[2024-05-31 05:54] LABS: Creatinine, Random Urine 81 mg/dL (20-275); Total Prot/Creat ratio mg/mg 0.111 (0.024-0.184); Total Protein/Creatinine Ratio 111 mg/g creat (24-184)
== END 2024-05-29 15:27 | disposition home or self-care (01) ==
LOC: ANHGOSHLAB 15:28
PROVIDERS: PCP Family Medicine; Visit Provider Internal Medicine Nephrology
DX: I12.9 Hypertensive chronic kidney disease with stage 1 through stage 4 chronic kidney disease, or unspecified chronic kidney disease (principal); E11.22 Type 2 diabetes mellitus with diabetic chronic kidney disease; N18.32 Chronic kidney disease, stage 3b
CPT/HCPCS: 82570; 84156; 84166

== ENCOUNTER 2024-09-18 14:34 | Outpatient (CLI) | payer MEDICARE, SELFPAY ==
[2024-09-18 19:47] LABS: Albumin Level 4.3 g/dL (3.5-5.1); Anion Gap 13 mmol/L (4-12); Blood Urea Nitrogen 60 mg/dL (7-17); Calcium 10.7 mg/dL (8.4-10.2); Carbon Dioxide 27 mmol/L (22-30); Chloride 99 mmol/L (98-107); Estimated Glomerular Filt Rate 46; Glucose 121 mg/dL (65-110); Phosphorus 4.1 mg/dL (2.5-4.5); Potassium 4.1 mmol/L (3.4-5.0); Sodium 139 mmol/L (137-145)
[2024-09-18 19:55] LABS: Creatinine Urine 74.6 mg/dL; Total Protein Urine Random 6 mg/dL; Ur Ttl Prot Creatinine Ratio 0.08 mg/mg (0-0.20)
[2024-09-18 19:58] LABS: Parathyroid Intact 41.3 pg/mL (14.5-75.2)
[2024-09-18 20:08] LABS: Vitamin D 25 Hydroxy 91.6 ng/mL
[2024-09-18 20:22] LABS: Hemoglobin A1C 7.4 % (<5.7)
== END 2024-09-18 14:35 | disposition home or self-care (01) ==
PROVIDERS: Internal Medicine Nephrology; PCP Family Medicine; Visit Provider Family Medicine
DX: I12.9 Hypertensive chronic kidney disease with stage 1 through stage 4 chronic kidney disease, or unspecified chronic kidney disease (principal); E11.22 Type 2 diabetes mellitus with diabetic chronic kidney disease; N18.32 Chronic kidney disease, stage 3b; N25.81 Secondary hyperparathyroidism of renal origin; E55.9 Vitamin D deficiency, unspecified
CPT/HCPCS: 36415; 80069; 82306; 82570; 83036; 83970; 84156

== ENCOUNTER 2024-11-04 08:41 | Outpatient (CLI) | payer MEDICARE, SELFPAY ==
[2024-11-04 14:29] LABS: CRP < 0.5 mg/dL (<1.0)
[2024-11-04 14:34] LABS: Alanine Aminotransferase 27 U/L (6-35); Alkaline Phosphatase 86 U/L (38-126); Anion Gap 9 mmol/L (4-12); Aspartate Amino Transferase 36 U/L (14-36); Bilirubin,Total 0.4 mg/dL (0.2-1.3); Blood Urea Nitrogen 47 mg/dL (7-17); Calcium 9.6 mg/dL (8.4-10.2); Carbon Dioxide 24 mmol/L (22-30); Chloride 106 mmol/L (98-107); Estimated Glomerular Filt Rate 48; Glucose 109 mg/dL (65-110); Potassium 4.1 mmol/L (3.4-5.0); Sodium 139 mmol/L (137-145)
[2024-11-04 14:35] LABS: Erythrocyte Sedimentation Rate 17 mm/hr (0-20)
[2024-11-04 15:24] LABS: Creatinine Urine 32.3 mg/dL
[2024-11-04 15:34] LABS: MALB Creatinine Ratio < 18.6 mg/g (0-30); Microalbumin Urine Random < 6.0 mg/L (0-16.7)
[2024-11-05 04:43] LABS: Creatinine Urine 31.2 mg/dL; Total Protein Urine Random 7 mg/dL; Ur Ttl Prot Creatinine Ratio 0.22 mg/mg (0-0.20)
[2024-11-05 12:03] LABS: C-Peptide 3.08 ng/mL (0.80-3.85)
== END 2024-11-04 08:42 | disposition home or self-care (01) ==
LOC: ANHGOSHLAB 08:42
PROVIDERS: Internal Medicine; Internal Medicine Nephrology; PCP Family Medicine; Visit Provider Internal Medicine
DX: M35.3 Polymyalgia rheumatica (principal); Z79.899 Other long term (current) drug therapy; E11.22 Type 2 diabetes mellitus with diabetic chronic kidney disease; I12.9 Hypertensive chronic kidney disease with stage 1 through stage 4 chronic kidney disease, or unspecified chronic kidney disease; N18.31 Chronic kidney disease, stage 3a
CPT/HCPCS: 36415; 80053; 82043; 82570; 84156; 84681; 85652; 86140; 86341

== ENCOUNTER 2025-01-29 08:27 | Outpatient (CLI) | payer MEDICARE, SELFPAY ==
[2025-01-29 12:50] LABS: Albumin Level 3.9 g/dL (3.5-5.1); Anion Gap 8 mmol/L (4-12); Blood Urea Nitrogen 38 mg/dL (7-17); Calcium 9.7 mg/dL (8.4-10.2); Carbon Dioxide 25 mmol/L (22-30); Chloride 107 mmol/L (98-107); Estimated Glomerular Filt Rate 49; Glucose 80 mg/dL (65-110); Phosphorus 3.2 mg/dL (2.5-4.5); Potassium 3.9 mmol/L (3.4-5.0); Sodium 140 mmol/L (137-145)
[2025-01-29 12:59] LABS: Total Protein Urine Random 9 mg/dL; Ur Ttl Prot Creatinine Ratio 0.19 mg/mg (0-0.20)
== END 2025-01-29 08:28 | disposition home or self-care (01) ==
LOC: ANHGOSHLAB 08:28
PROVIDERS: PCP Family Medicine; Visit Provider Internal Medicine Nephrology
DX: E11.22 Type 2 diabetes mellitus with diabetic chronic kidney disease (principal); I12.9 Hypertensive chronic kidney disease with stage 1 through stage 4 chronic kidney disease, or unspecified chronic kidney disease; N18.31 Chronic kidney disease, stage 3a
CPT/HCPCS: 36415; 80069; 82570; 84156

== ENCOUNTER 2025-02-12 10:01 | Outpatient (CLI) | payer MEDICARE, SELFPAY ==
[2025-02-12 19:09] LABS: CRP < 0.5 mg/dL (<1.0)
== END 2025-02-12 10:02 | disposition home or self-care (01) ==
LOC: ANHGOSHLAB 10:02
PROVIDERS: PCP Family Medicine; Visit Provider Internal Medicine
DX: M35.3 Polymyalgia rheumatica (principal); Z79.899 Other long term (current) drug therapy
CPT/HCPCS: 36415; 85652; 86140

== ENCOUNTER 2025-04-24 12:31 | Outpatient (CLI) | payer MEDICARE, SELFPAY ==
[2025-04-24 13:31] LABS: Hematocrit 43.5 % (37.0-47.0); Hemoglobin 13.6 g/dL (12.0-15.0); Immature Granulocyte Percent A 0.4 % (0-0.5); Lymphocytes Absolute Auto 2.42 K/mm3 (0.9-3.2); Mean Corpuscular HGB Conc 31.3 g/dl (32-36); Mean Corpuscular Hemoglobin 28.6 pg (26-34); Mean Corpuscular Volume 91.4 fl (80-100); Nucleated Red Blood Cells Absolute Auto 0.000 K/mm3 (0.0-0.012); Nucleated Red Blood Cells Perc 0.0 % (0.0-0.2); Platelet Count Result 177 k/mm3 (150-375); Red Blood Count 4.76 M/mm3 (4.2-5.4); White Blood Count 7.0 K/mm3 (4.5-10.0)
[2025-04-24 13:37] LABS: Cholesterol 192 mg/dL (0-200); HDL Direct 49 mg/dL; Triglycerides 109 mg/dL (<150)
== END 2025-04-24 12:32 | disposition home or self-care (01) ==
LOC: ANHGOSHLAB 12:32
PROVIDERS: PCP Nurse Practitioner Family; Visit Provider Nurse Practitioner Family
DX: E78.5 Hyperlipidemia, unspecified (principal); E55.9 Vitamin D deficiency, unspecified; I10 Essential (primary) hypertension
CPT/HCPCS: 36415; 80061; 82306; 85025

== ENCOUNTER 2025-06-11 09:51 | Outpatient (CLI) | payer MEDICARE, SELFPAY ==
[2025-06-11 13:05] LABS: Albumin Level 4.2 g/dL (3.5-5.1); Anion Gap 8 mmol/L (4-12); Blood Urea Nitrogen 43 mg/dL (7-17); Calcium 9.6 mg/dL (8.4-10.2); Carbon Dioxide 25 mmol/L (22-30); Chloride 104 mmol/L (98-107); Estimated Glomerular Filt Rate 43; Glucose 109 mg/dL (65-110); Potassium 4.2 mmol/L (3.4-5.0); Sodium 137 mmol/L (137-145)
[2025-06-11 20:10] LABS: Total Protein Urine Random 13 mg/dL; Ur Ttl Prot Creatinine Ratio 0.13 mg/mg (0-0.20)
[2025-06-11 20:45] LABS: Parathyroid Intact 53.4 pg/mL (14.5-75.2)
== END 2025-06-11 09:52 | disposition home or self-care (01) ==
PROVIDERS: PCP Nurse Practitioner Family; Visit Provider Internal Medicine Nephrology
DX: E11.22 Type 2 diabetes mellitus with diabetic chronic kidney disease (principal); N18.31 Chronic kidney disease, stage 3a; I12.9 Hypertensive chronic kidney disease with stage 1 through stage 4 chronic kidney disease, or unspecified chronic kidney disease; N25.81 Secondary hyperparathyroidism of renal origin; E55.9 Vitamin D deficiency, unspecified
CPT/HCPCS: 36415; 80069; 82306; 82570; 83970; 84156

== ENCOUNTER 2025-08-03 14:23 | Outpatient (CLI) | payer MEDICARE, SELFPAY ==
--- NOTE | ~2025-08-03 | DEXA_ITS ---
Bone Density Report Name: OCTAVIA MARTINES Age: 85 Sex: Female Ethnicity: White Date of : 1940 Indication: osteopenia; monitoring treatment; parental hip fracture; height loss; prior fracture; Referring Provider: MANAS HERNANDEZ Study: Bone densitometry was performed. Exam Date: August 03, 2025 Accession number: [id number] Bone Density: Region BMD T-score Z-score Classification AP Spine(L1-L4) 0.975 -0.7 2.2 Normal Femoral Neck (Left) 0.584 -2.4 0.1 Osteopenia Total Hip (Left) 0.689 -2.1 0.3 Osteopenia Femoral Neck (Right) 0.590 -2.3 0.2 Osteopenia Total Hip (Right) 0.737 -1.7 0.7 Osteopenia Total Hip Mean 0.713 -1.9 0.5 Osteopenia World Health Organization criteria for BMD impression classify patients as: Normal (T-score at or above -1.0), Osteopenia (T-score between -1.0 and -2.5), or Osteoporosis (T-score at or below -2.5). 10-year Fracture Risk: FRAX not reported because: Treated for osteoporosis Previous Exams: Region Exam Age BMD T-score BMD Change BMD Change Date g/cm2 vs Baseline vs Previous AP Spine (L1-L4) 08/03/2025 85 0.975 -0.7 0.039 (4.2%)# -0.025 (-2.5%) 05/08/2022 82 1.000 -0.4 0.064 (6.8%)# 0.070 (7.5%)* 05/24/2015 75 0.931 -1.1 -0.005 (-0.6%) -0.005 (-0.6%) 04/21/2013 73 0.936 -1.0 Total Hip(Left) 08/03/2025 85 0.689 -2.1 -0.029 (-4.1%) -0.059 (-7.9%) 05/08/2022 82 0.749 -1.6 0.030 (4.1%)# -0.014 (-1.8%) 05/24/2015 75 0.763 -1.5 0.044 (6.1%)# 0.044 (6.1%)# 04/21/2013 73 0.719 -1.8 Total Hip(Right) 08/03/2025 85 0.737 -1.7 -0.001 (-0.2%) -0.046 (-5.8%) 05/08/2022 82 0.783 -1.3 0.044 (6.0%)# 0.042 (5.7%)* 05/24/2015 75 0.740 -1.7 0.002 (0.3%)# 0.002 (0.3%)# 04/21/2013 73 0.738 -1.7 *Denotes significance at 95% confidence level, LSC for AP Spine = 0.022 g/cm2, LSC for Total Hip = 0.027 g/cm2 # Denotes dissimilar scan types or analysis methods Clinical Information Provided by Patient: Has had a low trauma fracture Parent has had a hip fracture Is being treated for osteoporosis Has used the following medications: Fosamax (i.e. alendronate), Vitamin D, Calcium Patient maximum height was 64 Menopause Age: 45 No regular weight bearing exercise Onset of menses at age 13 Number of children 5 Impression: The patient has low bone mass, based on the Left Femoral Neck T-score. The patient has risk factors, including: parental hip fracture, previous fracture. The BMD for the AP Spine (L1-L4) decreased, changing by -2.5% since the last DXA exam. The BMD for the Total Hip(Left) decreased, changing by -7.9% since the last DXA exam. The BMD for the Total Hip(Right) decreased, changing by -5.8% since the last DXA exam. Discussion: SIGNIFICANT BONE LOSS OBSERVED. Adherence to therapy (including calcium and vitamin D intake) should be assessed. If compliance is not a factor, review management and exclusion of secondary causes of bone loss. It is important to ask patients whether they are taking their medications and to encourage continued and appropriate compliance with their osteoporosis therapies to reduce fracture risk. It is also important to review their risk factors and encourage appropriate calcium and vitamin D intakes, exercise, fall prevention and other lifestyle measures. Follow-Up: Consider a repeat BMD and Vertebral Fracture Assessment (VFA) exam in 2 years or sooner if medically necessary, to reassess this patient's status. Reported by: VERONIKA on 08/03/2025 3:06:00 PM. Reviewed, dictated and finalized at location A.
== END 2025-08-03 14:24 | disposition home or self-care (01) ==
PROVIDERS: PCP Nurse Practitioner Family; Visit Provider Nurse Practitioner Family
DX: M85.89 Other specified disorders of bone density and structure, multiple sites (principal); Z78.0 Asymptomatic menopausal state
CPT/HCPCS: 77080